=== PATIENT | female | born 1955 | race Caucasian/White ===

== ENCOUNTER 2019-01-19 19:38 | Emergency (ER) | payer SELFPAY ==
--- OUTSIDE RECORDS SUMMARY | 2019-01-19 19:41 | XMS REPORT ---
:1955 [facility] Address [facility] Brito [address] [place] [id number] Care Team Providers Name Role Phone Unavailable Unavailable Unavailable Problems This patient has no known problems. Allergies, Adverse Reactions, Alerts This patient has no known allergies or adverse reactions. Medications This patient has no known medications.
[2019-01-19] MEDS ORDERED: ONDANSETRON 4 MG/2 ML VIAL ONE (20:16)
[2019-01-19 20:46] LABS: Absolute Lymphocytes (CBC) 2.2 K/uL (0.7-4.9); Absolute Monocytes 1.7 K/uL (0.1-1.3); Absolute Neutrophil 10.5 K/uL (1.8-8.0); Basophils % 0.4 % (0-1.3); Eosinophils % 0.2 % (0-4.4); Hematocrit 39.6 % (36.0-45.0); Lymphocytes % 15.3 % (15.3-44.8); MPV 8.6 fL (7.6-11.3); Monocytes % 12.1 % (3.3-12.3); RBC Red Blood Cell Count 4.33 M/uL (3.86-4.86)
[2019-01-19 20:51] LABS: Albumin 3.5 g/dL (3.4-5.0); Bilirubin Direct 0.2 mg/dL (0-0.2); Bilirubin Total 0.5 mg/dL (0.2-1.0); Potassium 3.9 mmol/L (3.5-5.1); Protein, Total 7.3 g/dL (6.4-8.2)
[2019-01-19 20:55] LABS: Urine Culture Reflex Order NOT NEEDED
[2019-01-19 20:56] LABS: Urine Blood NEGATIVE (NEG); Urine Glucose NEGATIVE (NEG); Urine Protein TRACE (NEG); Urine Specific Gravity 1.015 (1.005-1.030)
[2019-01-19 20:56] LABS: Urine Bacteria <20 /HPF (<20); Urine RBC NONE SEEN /HPF (NONE SEEN)
--- NOTE | 2019-01-19 22:53 | ER ---
Nurse's Notes [facility] Name: Jayshree Grove Age: 63 yrs Sex: Female : 1955 Arrival Date: 01/19/2019 Time: 19:39 Bed 27 Private MD: Diagnosis: Urinary tract infection, site not specified;Dehydration;Viral syndrome Presentation: 01/19 19:43 Presenting complaint: Patient states: "I went to the doctor yesterday and he said that aj1 I have a bladder infection, and he gave me these (Nitrofurantoin and Naproxen) around 1200 I started feeling really bad. I started shaking and I was just freezing so I went home and took my medicine and then I felt really hot and I'm just not feeling good, my whole body hurts and everything". Transition of care: patient was not received from another setting of care. Onset of symptoms was January 19, 2019. Risk Assessment: Do you want to hurt yourself or someone else? Patient reports no desire to harm self or others. Initial Sepsis Screen: Does the patient meet any 2 criteria? HR > 90 bpm. No. Patient's initial sepsis screen is negative. Does the patient have a suspected source of infection? Yes: Dysuria/Frequency/Urgency/UTI. Care prior to arrival: None. 19:43 Method Of Arrival: Ambulatory [facility] 19:43 Acuity: BRIAN 3 aj1 Triage Assessment: 19:47 General: Appears in no apparent distress. uncomfortable, Behavior is cooperative, aj1 anxious. Pain: Complains of pain in generalized body aches. Neuro: Level of Consciousness is awake, alert, obeys commands, Oriented to person, place, time, situation. Cardiovascular: Patient's skin is warm and dry. Respiratory: Airway is patent Respiratory effort is even, unlabored, Respiratory pattern is regular, agonal. Musculoskeletal: Range of motion: intact in all extremities. Historical: - Allergies: 19:47 Codeine; aj1 - Home Meds: 19:47 lisinopril 10 mg Oral tab 1 tab once daily [Active]; Nitrofurantoin Macrocrystal Oral aj1 [Active]; Naproxen Oral [Active]; - PMHx: 19:47 Hypertension; aj1 - PSHx: 19:47 Cholecystectomy; Appendectomy; ; aj1 - Immunization history:: Flu vaccine is not up to date. - Social history:: Smoking status: Patient/guardian denies using tobacco. - Ebola Screening: : Patient denies travel to an Ebola-affected area in the 21 days before illness onset. - Family history:: not pertinent. - Hospitalizations: : No recent hospitalization is reported. Screenin:26 Abuse screen: Denies threats or abuse. Denies injuries from another. Nutritional mg2 screening: No deficits noted. Tuberculosis screening: No symptoms or risk factors identified. Fall Risk IV access (20 points). Assessment: 20:25 General: Appears comfortable, Behavior is calm, cooperative. Pain: Complains of pain in mg2 back Pain does not radiate. Pain currently is 4 out of 10 on a pain scale. Quality of pain is described as aching, Pain began gradually. Neuro: Level of Consciousness is awake, alert, obeys commands, Oriented to person, place, time, situation. Cardiovascular: Capillary refill < 3 seconds Patient's skin is warm and dry. Respiratory: Airway is patent Respiratory effort is even, unlabored, Respiratory pattern is regular, symmetrical. GI: Reports nausea, vomiting. : Urine is clear. EENT: Reports pain when swallowing. Derm: Skin is intact, is healthy with good turgor, Skin is pink, warm \\T\\ dry. normal. Musculoskeletal: Circulation, motion, and sensation intact. Capillary refill is > 3 seconds. 22:43 Reassessment: Patient appears in no apparent distress at this time. Patient and/or mg2 family updated on plan of care and expected duration. Pain level reassessed. Patient is alert, oriented x 3, equal unlabored respirations, skin warm/dry/pink. Vital Signs: 19:47 BP 143 / 73; Pulse 92; Resp 18; Temp 99.3(O); Pulse Ox 95% on R/A; Weight 76.66 kg (R); aj1 Height 5 ft. 6 in. (167.64 cm) (R); Pain 8/10; 22:43 BP 124 / 68; Pulse 72; Resp 18; Pulse Ox 100% on R/A; Pain 6/10; mg2 19:47 Body Mass Index 27.28 (76.66 kg, 167.64 cm) aj1 ED Course: 19:39 Patient arrived in ED. am2 19:46 Triage completed. aj1 19:47 Arm band placed on Patient placed in an exam room. aj1 19:51 Duane Amaya MD is Attending Physician. rn 20:03 Maximino Gomez, BASILIA is Primary Nurse. mg2 20:27 Patient has correct armband on for positive identification. mg2 20:27 No provider procedures requiring assistance completed. Inserted saline lock: 22 gauge mg2 in right forearm, using aseptic technique. Blood collected. 21:57 CT Abd/Pelvis - W/Contrast In Process Unspecified. EDMS 23:00 IV discontinued, intact, bleeding controlled, No redness/swelling at site. Pressure ca1 dressing applied. Administered Medications: 20:25 Drug: Zofran 4 mg Route: IVP; Site: right forearm; mg2 21:26 Follow up: Response: No adverse reaction; Marked relief of symptoms mg2 22:53 Drug: Tylenol 650 mg Route: PO; mg2 Outcome: 22:52 Discharge ordered by MD. rn 23:00 Discharged to home ambulatory. ca1 23:00 Condition: stable 23:00 Discharge instructions given to patient, Instructed on discharge instructions, follow up and referral plans. Demonstrated understanding of instructions, follow-up care. 23:04 Patient left the ED. ca1 Signatures: Dispatcher [employer] EDMS Teresa Mckay RN RN aj1 Duane Amaya MD MD rn Moreno, Amanda Maximino Theodore, BASILIA CUI mg2 Mirna Norman RN RN ca1
--- NOTE | 2019-01-19 22:53 | EDPHYS ---
Physician Documentation [facility] Name: Jayshree Grove Age: 63 yrs Sex: Female : 1955 Arrival Date: 01/19/2019 Time: 19:39 Bed 27 Private MD: ED Physician Duane Amaya HPI: 01/19 20:12 This 63 yrs old Female presents to ER via Ambulatory with complaints of rn Fever, Back Pain, Nausea/Vomiting. 20:12 The patient reports fever, that was measured at 100.2 degrees Fahrenheit. Onset: The rn symptoms/episode began/occurred today. Modifying factors: there are no obvious modifying factors. Severity of symptoms: At their worst the symptoms were mild in the emergency department the symptoms are unchanged. The patient has not experienced similar symptoms in the past. The patient has been recently seen by a physician:. Reports recently saw her pcp for chills and diagnosed with UTI, given macrobid, s/p 4 doses, reports today around noon felt worse, reports runny nose/sore throat/weakness/chills/muscle aches.. Historical: - Allergies: 19:47 Codeine; aj1 - Home Meds: 19:47 lisinopril 10 mg Oral tab 1 tab once daily [Active]; Nitrofurantoin Macrocrystal Oral aj1 [Active]; Naproxen Oral [Active]; - PMHx: 19:47 Hypertension; aj1 - PSHx: 19:47 Cholecystectomy; Appendectomy; ; aj1 - Immunization history:: Flu vaccine is not up to date. - Social history:: Smoking status: Patient/guardian denies using tobacco. - Ebola Screening: : Patient denies travel to an Ebola-affected area in the 21 days before illness onset. - Family history:: not pertinent. - Hospitalizations: : No recent hospitalization is reported. ROS: 20:12 Constitutional: + fever and chills Eyes: Negative for injury, pain, redness, and patternmaker wood, ENT: + congestion and sore throat Neck: Negative for injury, pain, and swelling, Cardiovascular: Negative for chest pain, palpitations, and edema, Respiratory: Negative for shortness of breath, cough, wheezing, and pleuritic chest pain, Abdomen/GI: + nausea and vomiting Back: Negative for injury and pain, : Negative for injury, bleeding, discharge, and swelling, MS/Extremity: Negative for injury and deformity, Skin: Negative for injury, rash, and discoloration, Neuro: + generalized weakness Exam: 20:12 Constitutional: This is a well developed, well nourished patient who is awake, alert, rn and in no acute distress. Head/Face: Normocephalic, atraumatic. Eyes: Pupils equal round and reactive to light, extra-ocular motions intact. Lids and lashes normal. Conjunctiva and sclera are non-icteric and not injected. Cornea within normal limits. Periorbital areas with no swelling, redness, or edema. ENT: MMM Neck: Trachea midline, no thyromegaly or masses palpated, and no cervical lymphadenopathy. Supple, full range of motion without nuchal rigidity, or vertebral point tenderness. No Meningismus. Cardiovascular: Regular rate and rhythm. No pulse deficits. Respiratory: Lungs have equal breath sounds bilaterally, clear to auscultation. No increased work of breathing, no retractions or nasal flaring. Abdomen/GI: soft, mild suprapubic tenderness, no rebound Back: No spinal tenderness. No costovertebral tenderness. Full range of motion. Skin: Warm, dry with normal turgor. Normal color with no rashes, no lesions, and no evidence of cellulitis. MS/ Extremity: Pulses equal, no cyanosis. Neurovascular intact. Full, normal range of motion. Equal circumference. Neuro: Awake and alert, GCS 15, oriented to person, place, time, and situation. Cranial nerves II-XII grossly intact. Motor strength 5/5 in all extremities. Sensory grossly intact. Vital Signs: 19:47 BP 143 / 73; Pulse 92; Resp 18; Temp 99.3(O); Pulse Ox 95% on R/A; Weight 76.66 kg (R); aj1 Height 5 ft. 6 in. (167.64 cm) (R); Pain 8/10; 22:43 BP 124 / 68; Pulse 72; Resp 18; Pulse Ox 100% on R/A; Pain 6/10; mg2 19:47 Body Mass Index 27.28 (76.66 kg, 167.64 cm) aj1 MDM: 19:51 Patient medically screened. rn 22:49 Differential diagnosis: viral Infection, bacterial infection, URI, UTI, rn gastroenteritis, meningitis. Data reviewed: vital signs, nurses notes, lab test result(s), radiologic studies, CT scan, and as a result, I will discharge patient. Counseling: I had a detailed discussion with the patient and/or guardian regarding: the historical points, exam findings, and any diagnostic results supporting the discharge/admit diagnosis, lab results, radiology results, the need for outpatient follow up, to return to the emergency department if symptoms worsen or persist or if there are any questions or concerns that arise at home. 22:50 Special discussion: I discussed with the patient/guardian in detail that at this point rn there is no indication for admission to the hospital. It is understood, however, that if the symptoms persist or worsen the patient needs to return immediately for re-evaluation. ED course: Pt with no acute findings on CT, questionable UTI but partially treated, neg flu, possible flu like illness. Reports headache, given tylenol, no meningeal signs. . 22:50 ED course: Has appt with pcp tomorrow at 10 AM. Return precautions given and rn understood.. 01/19 19:59 Order name: Basic Metabolic Panel; Complete Time: 21:30 01/19 19:59 Order name: CBC with Diff; Complete Time: 21: 01/19 19:59 Order name: Hepatic Function; Complete Time: 21: 01/19 19:59 Order name: Lipase; Complete Time: 21: 01/19 19:59 Order name: Flu; Complete Time: 21:30 01/19 19:59 Order name: Urine Culture 01/19 19:59 Order name: IV Saline Lock; Complete Time: 20:25 01/19 19:59 Order name: Urine Microscopic Only; Complete Time: 21:30 01/19 19:59 Order name: Strep; Complete Time: 21:30 01/19 20:28 Order name: Urine Dipstick--Ancillary (enter results); Complete Time: 21:30 mw2 01/19 20:50 Order name: Throat Culture EDIL 01/19 21:31 Order name: CT Abd/Pelvis - W/Contrast 01/19 19:59 Order name: Labs collected and sent; Complete Time: 20:25 rn 01/19 19:59 Order name: Urine Dipstick-Ancillary (obtain specimen); Complete Time: 20:25 rn Administered Medications: 20:25 Drug: Zofran 4 mg Route: IVP; Site: right forearm; mg2 21:26 Follow up: Response: No adverse reaction; Marked relief of symptoms mg2 22:53 Drug: Tylenol 650 mg Route: PO; mg2 Disposition: 01/19/19 22:52 Discharged to Home. Impression: Urinary tract infection, site not specified, Dehydration, Viral syndrome. - Condition is Stable. - Discharge Instructions: Dehydration, Adult, Urinary Tract Infection, Adult. - Medication Reconciliation Form, Thank You Letter, Antibiotic Education, Prescription Opioid Use form. - Follow up: Private Physician; When: Tomorrow; Reason: Recheck today's complaints, Re-evaluation by your physician. - Problem is new. - Symptoms have improved. Signatures: Dispatcher [employer] EDMS Teresa Mckay RN RN aj1 Duane Amaya MD MD rn Gardose, Michele, RN RN mg2 Mirna Norman RN RN ca1 Corrections: (The following items were deleted from the chart) 22:50 20:12 Constitutional: This is a well developed, well nourished patient who is awake, rn alert, and in no acute distress. Head/Face: Normocephalic, atraumatic. Eyes: Pupils equal round and reactive to light, extra-ocular motions intact. Lids and lashes normal. Conjunctiva and sclera are non-icteric and not injected. Cornea within normal limits. Periorbital areas with no swelling, redness, or edema. ENT: MMM Cardiovascular: Regular rate and rhythm. No pulse deficits. Respiratory: Lungs have equal breath sounds bilaterally, clear to auscultation. No increased work of breathing, no retractions or nasal flaring. Abdomen/GI: soft, mild suprapubic tenderness, no rebound Back: No spinal tenderness. No costovertebral tenderness. Full range of motion. Skin: Warm, dry with normal turgor. Normal color with no rashes, no lesions, and no evidence of cellulitis. MS/ Extremity: Pulses equal, no cyanosis. Neurovascular intact. Full, normal range of motion. Equal circumference. Neuro: Awake and alert, GCS 15, oriented to person, place, time, and situation. Cranial nerves II-XII grossly intact. Motor strength 5/5 in all extremities. Sensory grossly intact. rn 23:04 22:52 01/19/2019 22:52 Discharged to Home. Impression: Urinary tract infection, site ca1 not specified; Dehydration; Viral syndrome. Condition is Stable. Forms are Medication Reconciliation Form, Thank You Letter, Antibiotic Education, Prescription Opioid Use. Follow up: Private Physician; When: Tomorrow; Reason: Recheck today's complaints, Re-evaluation by your physician. Problem is new. Symptoms have improved. rn
[2019-01-19] MEDS ORDERED: ACETAMINOPHEN 325 MG TABLET ONE (23:04)
--- NOTE | 2019-01-20 11:32 | RAD REPORT ---
EXAM DESCRIPTION: CT - Abdomen Pelvis W Contrast - 01/19/2019 10:20 pm CLINICAL HISTORY: Abdominal pain. Fever. COMPARISON: None. TECHNIQUE: CT scan of the abdomen and pelvis was performed with IV contrast. This exam was performed according to our departmental dose-optimization program, which includes automated exposure control, adjustment of the mA and/or kV according to patient size and/or use of iterative reconstruction techn ique. FINDINGS: The lung bases are clear. No pleural or pericardial effusions. There is no hiatal hernia. There has been a prior cholecystectomy. The liver, spleen, pancreas, adrenal glands, and kidneys are normal. The pelvic organs are also normal. The appendix is not seen. No small bowel obstruction. There is no evidence of acute diverticulitis. N o intraperitoneal free fluid or free air is seen. There are mild degenerative changes of the spine. No body wall hernia is seen. The aorta and IVC are normal caliber. IMPRESSION: No acute abdominal or pelvic pathology. Electronically signed by: Massimo Mayorga MD 01/19/2019 10:11 PM CDT Due to temporary technical issues with the PACS/Fluency reporting system, reports are being signed by the in house radiologist as a courtesy to ensure prompt reporting. The interpreting radiologist is f ully responsible for the content of the report.
== END 2019-01-19 23:04 | disposition home or self-care (01) ==
LOC: ER 19:38
DX: E86.0 Dehydration (principal); N39.0 Urinary tract infection, site not specified; B34.9 Viral infection, unspecified; I10 Essential (primary) hypertension; Z88.5 Allergy status to narcotic agent; Z90.49 Acquired absence of other specified parts of digestive tract
CPT/HCPCS: 36415; 74177; 80048; 80076; 81003; 81015; 83690; 85025; 87070; 87081; 87086; 87088; 87804; J2405; Q9967

== ENCOUNTER 2023-10-19 07:39 | Observation (INO) | payer OTHER, SELFPAY ==
[2023-10-15 14:51] LABS: Urine Bilirubin NEGATIVE (Negative); Urine Blood Negative (Negative); Urine Clarity Clear (Clear); Urine Color Light-Yellow (Yellow); Urine Glucose NEGATIVE (Negative); Urine Protein NEGATIVE (Negative); Urine Urobilinogen Normal (Normal)
[2023-10-15 14:54] LABS: Lymphocytes % 38.9 % (15.3-44.8); MCV 93.1 fL (80-100); MPV 9.8 fL (7.6-11.3); Platelets 255 thou/uL (152-406); RBC Red Blood Cell Count 4.62 M/uL (3.86-4.86)
[2023-10-15 15:00] LABS: Potassium 3.8 mEq/L (3.5-5.1)
[2023-10-19] MEDS ORDERED: SCOPOLAMINE HYDROBROMIDE PATCH TD ONE (08:03)
[2023-10-19] MEDS ORDERED: Ringers Lactate 1,000 ML IV ONE ×2 (08:03→12:45)
[2023-10-19] MEDS ORDERED: LIDOCAINE 1% MPF 5 ML VIAL ONE (08:37)
[2023-10-19] MEDS ORDERED: ROCURONIUM 50 MG/5 ML VIAL IV ONE (08:37)
[2023-10-19] MEDS ORDERED: dexAMETHasone 10 MG/ML VIAL ONE (08:37)
[2023-10-19] MEDS ORDERED: MIDAZOLAM HCL 2 MG/2 ML INJ ONE (08:37)
[2023-10-19] MEDS ORDERED: propofoL 200 MG/20 ML VIAL IV ONE (08:37)
[2023-10-19] MEDS ORDERED: ONDANSETRON 4 MG/2 ML VIAL ONE (08:37)
[2023-10-19] MEDS ORDERED: FENTANYL CITR 100 MCG/2 ML ONE (08:37)
[2023-10-19] MEDS ORDERED: VASOPRESSIN 20 UNIT/ML VIAL ONE (10:00)
[2023-10-19] MEDS ORDERED: LIDOCAINE HCL/EPINEPHRINE 20 ML MDV ONE (10:03)
[2023-10-19] MEDS ORDERED: NA CHLORIDE 0.9% 100 ML ONE (10:05)
[2023-10-19] MEDS ORDERED: CEFAZOLIN SODIUM 1 GM/VIAL ONE (10:07)
[2023-10-19] MEDS ORDERED: KETAMINE HCL IN 0.9 % NACL 50 MG/5 ML SYRINGE IV ONE (10:07)
[2023-10-19] MEDS: CEFAZOLIN SODIUM 2 GM/VIAL ONE ×2 (10:22→10:40)
[2023-10-19] MEDS ORDERED: GLYCOPYRROLATE 0.2 MG/ML SYR ONE (11:13)
[2023-10-19] MEDS ORDERED: MORPHINE 10 MG/ML VIAL ONE (13:30)
[2023-10-19] MEDS ORDERED: HOME MED 1 EA UNK (Albuterol Sulfate [Proair Respiclick] 90 MCG Aer.Pow.Ba) IH PRN (13:49)
[2023-10-19] MEDS ORDERED: ONDANSETRON 4 MG/2 ML VIAL IV PRN (13:50)
[2023-10-19] MEDS ORDERED: PROMETHAZINE INJ 25 MG/ML AMP IV PRN (13:50)
--- NOTE | 2023-10-19 14:00 | P.BOP ---
Preoperative diagnosis: stage 3 anterior wall, incomplete ut vag prolapse, rectocele,Georgina Postoperative diagnosis: same, post enterocele Primary procedure: Biolog graft aug.Ant repair,sara sslf cervico-colpopexy,post repairSSD Secondary procedure: posterior enterocele repair and perineorrhaphy TO-MUS (solyx) Other procedure(s): cysto Retail Analyst: Caitlin Blandon Estimated blood loss: 50 Specimen: none Findings: 0/+2/0/6/MOD/8/0/0/-3,Post enterocel, distal L lat defect post wall defect Anesthesia: General Complications: None Drain(s): Urinary catheter Implants: solyx, Coloplast graft 8x6 Transferred to: Recovery Room Condition: Good
[2023-10-19] MEDS: MORPHINE 4 MG/ML SYR ONE ×4 (14:40→14:58)
[2023-10-19] MEDS ORDERED: MORPHINE 4 MG/ML SYR ONE (14:58)
[2023-10-19 15:08] VITALS: O2SAT 97
--- OUTSIDE RECORDS SUMMARY | 2023-10-19 15:17 | XMS REPORT | Continuity of Care Document ---
Author Name Unknown Address [address] [facility] [address] [place] [address] [facility] thconnect Address [address] [facility] [address] [place] [address] Care Team Providers Care Vp Sales Name Role Phone CHRISTINE SANTOYO Primary Care Physician Un available YOLIE DELGADO Attending Clinician SHARIFA Kennedy Attending Clinician Unavailable GC_GCBZW_Yimi_[facility] Attending Clinician Sharifa Orlando MD Attending Clinician Pob, [facility] Main Attending Clinician Yolie Herbert MD Attending Clinician [phone] YOLIE LIM Attending Clinician UnavailDIO Mendoza Attending Clinician Unavailable Dio Quispe PA-C Attending Clinician Doctor Unassigned, [place] Attending Clinician U Christine Ceballos MD Attending Clinician [phone] AMANDEEP HANNON Attending Clinician Unavailable Amandeep Devries Attending Clinician [phone] LUZ RICARDO Attending Clinician UnavailLuz Jasmine MD Attending Clinician [phone], [facility] Attending Clinician Unavailable CHRISTINE SANTOYO Attending Clinician Unava GRISELDA Sandoval Attending Clinician Unavailab GRISELDA Kirkpatrick Attending Clinician Unavailab tod Nurse, [facility] Fam Attending Clinician Unavailable JAQUELINE NG Attending Clinician Unavailab Jaqueline Michaels DO Attending Clinician [phone] COLETTE DYSON Attending Clinician Unavailjonel Olivera PT, Kareen Sosa Attending Clinician Unava Colette Rosa MD Attending Clinician [phone] Talon PT, Deneen Lawton Attending Clinician Unavail able AL VERGARA Attending Clinician Unavail able Nurse, [facility] Pob Immunization Attending Clinician Unavailable Al Vergara DO Attending Clinician [phone] Mary MCMAHAN, Yolie Hensley Attending Clinician + [phone] Only, [facility] Test Attending Clinician Unavailable Sarahi Kim MA Attending Clinician Unavailjonel Tavares GO GO DANCER, Oliva Guajardo Attending Clinician Unavail able Chelsea PT, Margot Mike Attending Clinician Unavailab tod Olsen AIRCRAFT LIFE SUPPORT FITTER, Flower Attending Clinician [phone] Mariana Berger PT Attending Clinician Unavailab FLOWER Olivares Attending Clinician UnavailCHARLOTTE Mckinnon Attending Clinician Unavailable Leighann DPM, Mel Anglin Attending Clinician MEL PALMA Attending Clinician Unav ailANU Tucker Attending Clinician Unavailable George TRUCK SHOP MECHANIC, Anu Mike Attending Clinician [phone] Taran Pittman MD Attending Clinician [phone] Kevin York MD Attending Clinician [phone] Nash Morales MD Attending Clinician [phone] YOLIE DELGADO Admitting Clinician Malena bravo GC_GCBZW_[facility] Admitting Clinician Unavaila SHARIFA Salcedo Admitting Clinician Unavailable LUZ RICARDO Admitting Clinician UnavailJAQUELINE Martínez Admitting Clinician Unavailab CHRISTINE Marie Admitting Clinician UnaYolie Aguayo MD Admitting Clinician [phone] ANU ROCHE Admitting Clinician Unavailable Payers Payer Name Policy Type Policy Number Effective Date Expirati on Date Source [employer]LL[employer]/UHC DUAL COMP HMO D SNP [id number] 2021 00:00:00 [place] [id number] 2021 00:00:00 [employer] [place] [id number] 2022 00:00:00 [place] - [place] - [place] - [place]MEDIC[place] REPLACEMENT/ADVANT AGE - HMO) [id number] Problems Condition Name Condition Details Condition Category Status Onset Date Resolution Date Last Treatment Date Treating Clinician Comments Source Decreased ROM of lumbar spine Decreased ROM of lumbar spine Disease Active 2020-09 00:00: 00 [facility] Chronic left SI joint pain Chronic left SI joint pain Disease Active 2020-09 00:00: 00 [facility] Low back pain Low back pain Disease Active 2020-09 00:00: 00 [facility] Type 2 diabetes mellitus without complicati on, without long-term current use of insulin Type 2 diabetes mellitus without complicati on, without long-term current use of insulin Disease Active 03-11 00:00: 00 [facility] Cervical high risk HPV (human papillomav irus) test positive Cervical high risk HPV (human papillomav irus) test positive Disease Active 12-18 00:00: 00 Overview: Formattin g of this note might be different from the original. Normal pap, +hpv will need cotesting in 1 year [facility] Menopausal state Menopausal state Disease Active 314 00:00: 00 [facility] H. pylori infection H. pylori infection Disease Active 8 00:00: 00 [facility] Essential hypertensi on Essential hypertensi on Disease Active 01-06 00:00: 00 [facility] Hyperlipid emia, unspecifie d Hyperlipid emia, unspecifie d Disease Active 01-06 00:00: 00 [facility] GERD (gastroeso phageal reflux disease) GERD (gastroeso phageal reflux disease) Disease Active 4-11 00:00: 00 [facility] Allergies, Adverse Reactions, Alerts Allergy Name Allergy Type Status Severity Reaction(s) Onset Date Inactive Date Treating Clinician Comments Source Judyithr omycin Propensi ty to adverse reaction s Active Nausea and/or Vomiting 05-22 00:00: 00 [facility] CLARITHR OMYCIN DRUG INGREDI Active N/V 05-22 00:00: 00 [facility] Codeine Propensi ty to adverse reaction s Active Hives 2014-09 00:00: 00 [facility] CODEINE DRUG INGREDI Active Hives 2014-09 00:00: 00 [facility] Social History Social Habit Start Date Stop Date Quantity Comments Source Sexual orientation [facility] History of Social function 2023-06-30 00:00:00 2023-06-30 00:00:00 [facility] Alcohol intake 2023-04-02 00:00:00 2023-04-02 00:00:00 Current non-drinker of alcohol (finding) [facility] Exposure to SARS-CoV-2 (event) 2022-12-12 00:00:00 2022-12-22 14:36:00 Not sure [facility] Cigarettes smoked current (pack per day) - Reported 2022-04-10 00:00:00 2022-04-10 00:00:00 [facility] Cigarette pack-years 2022-04-10 00:00:00 2022-04-10 00:00:00 [facility] Tobacco use and exposure 2022-04-10 00:00:00 2022-04-10 00:00:00 Smokeless tobacco non-user [facility] History of tobacco use 2018-05-23 00:00:00 Cigarette Smoker [facility] Sex Assigned At 1955 00:00:00 1955 00:00:00 [facility] Smoking Status Start Date Stop Date Source Ex-smoker 2022-04-10 00:00:00 2022-04-10 00:00:00 [facility] Medications Ordered Medication Name Filled Medication Name Start Date Stop Date Current Medication? Ordering Clinician Indication Dosage Frequency Signature (SIG) Comments Components Source GABAPENTIN 800 mg tablet 17 00:00: 00 Yes [id number] Take 1 tablet by mouth twice daily [facility] GABAPENTIN 800 mg tablet 2022-0 17 00:00: 00 Yes [id number] Take 1 tablet by mouth twice daily [facility] GABAPENTIN 800 mg tablet 17 00:00: 00 Yes [id number] Take 1 tablet by mouth twice daily [facility] GABAPENTIN 800 mg tablet 0 01-12 00:00: 00 Yes [id number] Take 1 tablet by mouth twice daily [facility] GABAPENTIN 800 mg tablet 0 01-12 00:00: 00 Yes [id number] Take 1 tablet by mouth twice daily [facility] GABAPENTIN 800 mg tablet 01-12 00:00: 00 Yes [id number] Take 1 tablet by mouth twice daily [facility] GABAPENTIN 800 mg tablet 17 00:00: 00 Yes [id number] Take 1 tablet by mouth twice daily [facility] GABAPENTIN 800 mg tablet 01-12 00:00: 00 Yes [id number] Take 1 tablet by mouth twice daily [facility] GABAPENTIN 800 mg tablet 0 17 00:00: 00 Yes [id number] Take 1 tablet by mouth twice daily [facility] GABAPENTIN 800 mg tablet 01-12 00:00: 00 Yes [id number] Take 1 tablet by mouth twice daily [facility] levalbutero l (XOPENEX) nebulizer solution 1.25 mg 12-19 19:00: 00 Yes 1.25mg 1.25 mg, Inhalation , TID, First dose on Thu12/19/22 at 1400, Until Discontinu ed, Routine [facility] NaCl 0.9% (NS) bolus infusion 500 mL 12-19 17:15: 00 12-19 19:02 :00 No 500mL at 999 mL/hr, 500 mL, IV Infusion, ONCE, 1 dose, On Thu12/19/22 at 1215, [facility] ipratropium (ATROVENT) 0.02 % nebulizer solution 0.5 mg 12-19 17:15: 00 12-19 16:47 :00 No .5mg 0.5 mg, Inhalation , ONCE, 1 dose, On Thu12/19/22 at 1215, [facility] proMETHazin e (PHENERGAN) 12.5 mg in NaCl 0.9% (NS) 50 mL IV piggyback 12-19 16:30: 00 12-19 16:43 :00 No 12.5mg 12.5 mg, IV Piggyback, ONCE, 1 dose, On Thu12/19/22 at 1130, [facility] meclizine (TRAVEL-EAS E (MECLIZINE) ) tablet 25 mg 12-19 16:30: 00 12-19 16:28 :00 No 25mg 25 mg, Oral, ONCE, 1 dose, On Thu12/19/22 at 1130, [facility] meclizine 25 mg tablet 12-19 00:00: 00 Yes [id number] 25mg Take 1 tablet by mouth every 6 (six) hours as needed for Dizziness. [facility] proMETHazin e 25 mg tablet 12-19 00:00: 00 Yes [id number] 25mg Take 1 tablet by mouth every 6 (six) hours as needed (Dizziness and/or Nausea). [facility] benzonatate 100 mg capsule 12-19 00:00: 00 Yes [id number] 100mg Take 1 capsule by mouth 3 (three) times daily as needed for Cough. [facility] albuterol 90 mcg/actuati on inhaler 12-19 00:00: 00 Yes [id number] 2{puff} Inhale 2 Puffs every 4 (four) hours as needed for Wheezing or Shortness of Breath. [facility] meclizine 25 mg tablet 12-19 00:00: 00 Yes [id number] 25mg Take 1 tablet by mouth every 6 (six) hours as needed for Dizziness. [facility] proMETHazin e 25 mg tablet 12-19 00:00: 00 Yes [id number] 25mg Take 1 tablet by mouth every 6 (six) hours as needed (Dizziness and/or Nausea). [facility] benzonatate 100 mg capsule 12-19 00:00: 00 Yes [id number] 100mg Take 1 capsule by mouth 3 (three) times daily as needed for Cough. [facility] albuterol 90 mcg/actuati on inhaler 12-19 00:00: 00 Yes [id number] 2{puff} Inhale 2 Puffs every 4 (four) hours as needed for Wheezing or Shortness of Breath. [facility] meclizine 25 mg tablet 12-19 00:00: 00 Yes [id number] 25mg Take 1 tablet by mouth every 6 (six) hours as needed for Dizziness. [facility] proMETHazin e 25 mg tablet 12-19 00:00: 00 Yes [id number] 25mg Take 1 tablet by mouth every 6 (six) hours as needed (Dizziness and/or Nausea). [facility] benzonatate 100 mg capsule 12-19 00:00: 00 Yes [id number] 100mg Take 1 capsule by mouth 3 (three) times daily as needed for Cough. [facility] albuterol 90 mcg/actuati on inhaler 12-19 00:00: 00 Yes [id number] 2{puff} Inhale 2 Puffs every 4 (four) hours as needed for Wheezing or Shortness of Breath. [facility] meclizine 25 mg tablet 12-19 00:00: 00 Yes [id number] 25mg Take 1 tablet by mouth every 6 (six) hours as needed for Dizziness. [facility] proMETHazin e 25 mg tablet 0 24 00:00: 00 Yes [id number] 25mg Take 1 tablet by mouth every 6 (six) hours as needed (Dizziness and/or Nausea). [facility] benzonatate 100 mg capsule 2022-0 324 00:00: 00 Yes [id number] 100mg Take 1 capsule by mouth 3 (three) times daily as needed for Cough. [facility] albuterol 90 mcg/actuati on inhaler 0 324 00:00: 00 Yes [id number] 2{puff} Inhale 2 Puffs every 4 (four) hours as needed for Wheezing or Shortness of Breath. [facility] meclizine 25 mg tablet 2022-0 24 00:00: 00 Yes [id number] 25mg Take 1 tablet by mouth every 6 (six) hours as needed for Dizziness. [facility] proMETHazin e 25 mg tablet 0 12-19 00:00: 00 Yes [id number] 25mg Take 1 tablet by mouth every 6 (six) hours as needed (Dizziness and/or Nausea). [facility] benzonatate 100 mg capsule 0 24 00:00: 00 Yes [id number] 100mg Take 1 capsule by mouth 3 (three) times daily as needed for Cough. [facility] albuterol 90 mcg/actuati on inhaler 0 12-19 00:00: 00 Yes [id number] 2{puff} Inhale 2 Puffs every 4 (four) hours as needed for Wheezing or Shortness of Breath. [facility] meclizine 25 mg tablet 2022-0 324 00:00: 00 Yes [id number] 25mg Take 1 tablet by mouth every 6 (six) hours as needed for Dizziness. [facility] proMETHazin e 25 mg tablet 2022-0 24 00:00: 00 Yes [id number] 25mg Take 1 tablet by mouth every 6 (six) hours as needed (Dizziness and/or Nausea). [facility] benzonatate 100 mg capsule 2022-0 24 00:00: 00 Yes [id number] 100mg Take 1 capsule by mouth 3 (three) times daily as needed for Cough. [facility] albuterol 90 mcg/actuati on inhaler 12-19 00:00: 00 Yes [id number] 2{puff} Inhale 2 Puffs every 4 (four) hours as needed for Wheezing or Shortness of Breath. [facility] meclizine 25 mg tablet 12-19 00:00: 00 Yes [id number] 25mg Take 1 tablet by mouth every 6 (six) hours as needed for Dizziness. [facility] albuterol 90 mcg/actuati on inhaler 12-19 00:00: 00 Yes [id number] 2{puff} Inhale 2 Puffs every 4 (four) hours as needed for Wheezing or Shortness of Breath. [facility] meclizine 25 mg tablet 12-19 00:00: 00 Yes [id number] 25mg Take 1 tablet by mouth every 6 (six) hours as needed for Dizziness. [facility] albuterol 90 mcg/actuati on inhaler 12-19 00:00: 00 Yes [id number] 2{puff} Inhale 2 Puffs every 4 (four) hours as needed for Wheezing or Shortness of Breath. [facility] meclizine 25 mg tablet 12-19 00:00: 00 Yes [id number] 25mg Take 1 tablet by mouth every 6 (six) hours as needed for Dizziness. [facility] albuterol 90 mcg/actuati on inhaler 12-19 00:00: 00 Yes [id number] 2{puff} Inhale 2 Puffs every 4 (four) hours as needed for Wheezing or Shortness of Breath. [facility] meclizine 25 mg tablet 12-19 00:00: 00 Yes [id number] 25mg Take 1 tablet by mouth every 6 (six) hours as needed for Dizziness. [facility] albuterol 90 mcg/actuati on inhaler 12-19 00:00: 00 Yes [id number] 2{puff} Inhale 2 Puffs every 4 (four) hours as needed for Wheezing or Shortness of Breath. [facility] meclizine 25 mg tablet 12-19 00:00: 00 Yes [id number] 25mg Take 1 tablet by mouth every 6 (six) hours as needed for Dizziness. [facility] albuterol 90 mcg/actuati on inhaler 12-19 00:00: 00 Yes [id number] 2{puff} Inhale 2 Puffs every 4 (four) hours as needed for Wheezing or Shortness of Breath. [facility] meclizine 25 mg tablet 12-19 00:00: 00 Yes [id number] 25mg Take 1 tablet by mouth every 6 (six) hours as needed for Dizziness. [facility] albuterol 90 mcg/actuati on inhaler 12-19 00:00: 00 Yes [id number] 2{puff} Inhale 2 Puffs every 4 (four) hours as needed for Wheezing or Shortness of Breath. [facility] proMETHazin e 25 mg tablet 12-19 00:00: 00 04-02 00:00 :00 No [id number] 25mg Take 1 tablet by mouth every 6 (six) hours as needed (Dizziness and/or Nausea). [facility] benzonatate 100 mg capsule 12-19 00:00: 00 04-02 00:00 :00 No [id number] 100mg Take 1 capsule by mouth 3 (three) times daily as needed for Cough. [facility] proMETHazin e 25 mg tablet 12-19 00:00: 00 04-02 00:00 :00 No [id number] 25mg Take 1 tablet by mouth every 6 (six) hours as needed (Dizziness and/or Nausea). [facility] benzonatate 100 mg capsule 24 00:00: 00 04-02 00:00 :00 No [id number] 100mg Take 1 capsule by mouth 3 (three) times daily as needed for Cough. [facility] predniSONE 20 mg tablet 24 00:00: 00 12-27 04:59 :00 No [id number] 40mg Take 2 tablets by mouth in the morning for 7 days. [facility] predniSONE 20 mg tablet 12-19 00:00: 00 12-27 04:59 :00 No [id number] 40mg Take 2 tablets by mouth in the morning for [address] [facility] ALBUTEROL 90 mcg/actuati on inhaler 3 00:00: 00 Yes [id number] INHALE 2 PUFFS BY MOUTH EVERY 6 HOURS NEEDED FOR WHEEZING FOR SHORTNESS OF BREATH [facility] ALBUTEROL 90 mcg/actuati on inhaler 3 00:00: 00 Yes [id number] INHALE 2 PUFFS BY MOUTH EVERY 6 HOURS NEEDED FOR WHEEZING FOR SHORTNESS OF BREATH [facility] ALBUTEROL 90 mcg/actuati on inhaler 3 00:00: 00 Yes [id number] INHALE 2 PUFFS BY MOUTH EVERY 6 HOURS NEEDED FOR WHEEZING FOR SHORTNESS OF BREATH [facility] ALBUTEROL 90 mcg/actuati on inhaler 3 00:00: 00 Yes [id number] INHALE 2 PUFFS BY MOUTH EVERY 6 HOURS NEEDED FOR WHEEZING FOR SHORTNESS OF BREATH [facility] ALBUTEROL 90 mcg/actuati on inhaler 3 00:00: 00 Yes [id number] INHALE 2 PUFFS BY MOUTH EVERY 6 HOURS NEEDED FOR WHEEZING FOR SHORTNESS OF BREATH [facility] ALBUTEROL 90 mcg/actuati on inhaler 3 00:00: 00 Yes [id number] INHALE 2 PUFFS BY MOUTH EVERY 6 HOURS NEEDED FOR WHEEZING FOR SHORTNESS OF BREATH [facility] ALBUTEROL 90 mcg/actuati on inhaler 3 00:00: 00 Yes [id number] INHALE 2 PUFFS BY MOUTH EVERY 6 HOURS NEEDED FOR WHEEZING FOR SHORTNESS OF BREATH [facility] ALBUTEROL 90 mcg/actuati on inhaler 3- 00:00: 00 Yes [id number] INHALE 2 PUFFS BY MOUTH EVERY 6 HOURS NEEDED FOR WHEEZING FOR SHORTNESS OF BREATH [facility] ALBUTEROL 90 mcg/actuati on inhaler 3- 00:00: 00 Yes [id number] INHALE 2 PUFFS BY MOUTH EVERY 6 HOURS NEEDED FOR WHEEZING FOR SHORTNESS OF BREATH [facility] ALBUTEROL 90 mcg/actuati on inhaler 0 3-21 00:00: 00 Yes [id number] INHALE 2 PUFFS BY MOUTH EVERY 6 HOURS NEEDED FOR WHEEZING FOR SHORTNESS OF BREATH [facility] ALBUTEROL 90 mcg/actuati on inhaler 3-21 00:00: 00 Yes [id number] INHALE 2 PUFFS BY MOUTH EVERY 6 HOURS NEEDED FOR WHEEZING FOR SHORTNESS OF BREATH [facility] ALBUTEROL 90 mcg/actuati on inhaler 0 3- 00:00: 00 Yes [id number] INHALE 2 PUFFS BY MOUTH EVERY 6 HOURS NEEDED FOR WHEEZING FOR SHORTNESS OF BREATH [facility] ALBUTEROL 90 mcg/actuati on inhaler 3-21 00:00: 00 Yes [id number] INHALE 2 PUFFS BY MOUTH EVERY 6 HOURS NEEDED FOR WHEEZING FOR SHORTNESS OF BREATH [facility] tamsulosin (FLOMAX) 0.4 mg 24 hr capsule 2021-09 0-04 00:00: 00 Yes [id number] .4mg Take 1 capsule by mouth in the morning. [facility] tamsulosin (FLOMAX) 0.4 mg 24 hr capsule 2021-09 0-04 00:00: 00 Yes [id number] .4mg Take 1 capsule by mouth in the morning. [facility] tamsulosin (FLOMAX) 0.4 mg 24 hr capsule 2021-09 0-04 00:00: 00 Yes [id number] .4mg Take 1 capsule by mouth in the morning. [facility] tamsulosin (FLOMAX) 0.4 mg 24 hr capsule 2021- 0-04 00:00: 00 Yes [id number] .4mg Take 1 capsule by mouth in the morning. [facility] tamsulosin (FLOMAX) 0.4 mg 24 hr capsule 2021- 0-04 00:00: 00 Yes [id number] .4mg Take 1 capsule by mouth in the morning. [facility] tamsulosin (FLOMAX) 0.4 mg 24 hr capsule 2- 0-04 00:00: 00 Yes [id number] .4mg Take 1 capsule by mouth in the morning. [facility] tamsulosin (FLOMAX) 0.4 mg 24 hr capsule 2021- 0-04 00:00: 00 Yes [id number] .4mg Take 1 capsule by mouth in the morning. [facility] tamsulosin (FLOMAX) 0.4 mg 24 hr capsule 2021- 0-04 00:00: 00 Yes [id number] .4mg Take 1 capsule by mouth in the morning. [facility] tamsulosin (FLOMAX) 0.4 mg 24 hr capsule 2021- 0-04 00:00: 00 Yes [id number] .4mg Take 1 capsule by mouth in the morning. [facility] tamsulosin (FLOMAX) 0.4 mg 24 hr capsule 2021- 0-04 00:00: 00 Yes [id number] .4mg Take 1 capsule by mouth in the morning. [facility] tamsulosin (FLOMAX) 0.4 mg 24 hr capsule 2021- 0-04 00:00: 00 Yes [id number] .4mg Take 1 capsule by mouth in the morning. [facility] tamsulosin (FLOMAX) 0.4 mg 24 hr capsule 2021- 0-04 00:00: 00 Yes [id number] .4mg Take 1 capsule by mouth in the morning. [facility] tamsulosin (FLOMAX) 0.4 mg 24 hr capsule 2021- 0-04 00:00: 00 Yes [id number] .4mg Take 1 capsule by mouth in the morning. [facility] tamsulosin (FLOMAX) 0.4 mg 24 hr capsule 2-1 0-04 00:00: 00 Yes [id number] .4mg Take 1 capsule by mouth in the morning. [facility] tamsulosin (FLOMAX) 0.4 mg 24 hr capsule 2- 0-04 00:00: 00 Yes [id number] .4mg Take 1 capsule by mouth in the morning. [facility] tamsulosin (FLOMAX) 0.4 mg 24 hr capsule 2021- 0-04 00:00: 00 Yes [id number] .4mg Take 1 capsule by mouth in the morning. [facility] tamsulosin (FLOMAX) 0.4 mg 24 hr capsule 2021-09 0-04 00:00: 00 Yes [id number] .4mg Take 1 capsule by mouth in the morning. [facility] tamsulosin (FLOMAX) 0.4 mg 24 hr capsule 2021-09 0-04 00:00: 00 Yes [id number] .4mg Take 1 capsule by mouth in the morning. [facility] tamsulosin (FLOMAX) 0.4 mg 24 hr capsule 2021-09 0-04 00:00: 00 Yes [id number] .4mg Take 1 capsule by mouth in the morning. [facility] cephALEXin (KEFLEX) 500 mg capsule 2021-09 0-04 00:00: 00 07-09 04:59 :00 No [id number] 500mg Take 1 capsule by mouth in the morning and 1 capsule at noon and 1 capsule in the evening. Do all this for 7 days. [facility] cephALEXin (KEFLEX) 500 mg capsule 2021-09 0-04 00:00: 00 07-09 04:59 :00 No [id number] 500mg Take 1 capsule by mouth in the morning and 1 capsule at noon and 1 capsule in the evening. Do all this for 7 days. [facility] amoxicillin 875 mg tablet 04-19 00:00: 00 04-27 04:59 :00 No [id number] 875mg Take 1 tablet by mouth in the morning and 1 tablet in the evening. Do all this for 7 days. [facility] lisinopriL 10 mg tablet 0 5-10 00:00: 00 Yes [id number] 10mg Take 1 tablet by mouth daily. [facility] montelukast (SINGULAIR) 10 mg tablet 2021-0 5-10 00:00: 00 Yes [id number] 10mg Take 1 tablet by mouth at bedtime. [facility] lisinopriL 10 mg tablet 2022-0 5-10 00:00: 00 Yes [id number] 10mg Take 1 tablet by mouth daily. [facility] montelukast (SINGULAIR) 10 mg tablet 2-0 5-10 00:00: 00 Yes [id number] 10mg Take 1 tablet by mouth at bedtime. [facility] lisinopriL 10 mg tablet 2-0 5-10 00:00: 00 Yes [id number] 10mg Take 1 tablet by mouth daily. [facility] montelukast (SINGULAIR) 10 mg tablet 2-0 5-10 00:00: 00 Yes [id number] 10mg Take 1 tablet by mouth at bedtime. [facility] lisinopriL 10 mg tablet 2-0 5-10 00:00: 00 Yes [id number] 10mg Take 1 tablet by mouth daily. [facility] montelukast (SINGULAIR) 10 mg tablet 2-0 5-10 00:00: 00 Yes [id number] 10mg Take 1 tablet by mouth at bedtime. [facility] lisinopriL 10 mg tablet 2-0 5-10 00:00: 00 Yes [id number] 10mg Take 1 tablet by mouth daily. [facility] montelukast (SINGULAIR) 10 mg tablet 2-0 5-10 00:00: 00 Yes [id number] 10mg Take 1 tablet by mouth at bedtime. [facility] lisinopriL 10 mg tablet 2-0 5-10 00:00: 00 Yes [id number] 10mg Take 1 tablet by mouth daily. [facility] montelukast (SINGULAIR) 10 mg tablet 2-0 5-10 00:00: 00 Yes [id number] 10mg Take 1 tablet by mouth at bedtime. [facility] lisinopriL 10 mg tablet 2-0 5-10 00:00: 00 Yes [id number] 10mg Take 1 tablet by mouth daily. [facility] montelukast (SINGULAIR) 10 mg tablet 2022-0 5-10 00:00: 00 Yes [id number] 10mg Take 1 tablet by mouth at bedtime. [facility] lisinopriL 10 mg tablet 2-0 5-10 00:00: 00 Yes [id number] 10mg Take 1 tablet by mouth daily. [facility] montelukast (SINGULAIR) 10 mg tablet 2-0 5-10 00:00: 00 Yes [id number] 10mg Take 1 tablet by mouth at bedtime. [facility] lisinopriL 10 mg tablet 2-0 5-10 00:00: 00 Yes [id number] 10mg Take 1 tablet by mouth daily. [facility] montelukast (SINGULAIR) 10 mg tablet 2-0 5-10 00:00: 00 Yes [id number] 10mg Take 1 tablet by mouth at bedtime. [facility] lisinopriL 10 mg tablet 2-0 5-10 00:00: 00 Yes [id number] 10mg Take 1 tablet by mouth daily. [facility] montelukast (SINGULAIR) 10 mg tablet 2-0 5-10 00:00: 00 Yes [id number] 10mg Take 1 tablet by mouth at bedtime. [facility] lisinopriL 10 mg tablet 2-0 5-10 00:00: 00 Yes [id number] 10mg Take 1 tablet by mouth daily. [facility] montelukast (SINGULAIR) 10 mg tablet 2-0 5-10 00:00: 00 Yes [id number] 10mg Take 1 tablet by mouth at bedtime. [facility] lisinopriL 10 mg tablet 2-0 5-10 00:00: 00 Yes [id number] 10mg Take 1 tablet by mouth daily. [facility] montelukast (SINGULAIR) 10 mg tablet 2-0 5-10 00:00: 00 Yes [id number] 10mg Take 1 tablet by mouth at bedtime. [facility] lisinopriL 10 mg tablet 2-0 5-10 00:00: 00 Yes [id number] 10mg Take 1 tablet by mouth daily. [facility] montelukast (SINGULAIR) 10 mg tablet 2-0 5-10 00:00: 00 Yes [id number] 10mg Take 1 tablet by mouth at bedtime. [facility] lisinopriL 10 mg tablet 2-0 5-10 00:00: 00 Yes [id number] 10mg Take 1 tablet by mouth daily. [facility] montelukast (SINGULAIR) 10 mg tablet 2-0 5-10 00:00: 00 Yes [id number] 10mg Take 1 tablet by mouth at bedtime. [facility] lisinopriL 10 mg tablet 2-0 5-10 00:00: 00 Yes [id number] 10mg Take 1 tablet by mouth daily. [facility] montelukast (SINGULAIR) 10 mg tablet 2-0 5-10 00:00: 00 Yes [id number] 10mg Take 1 tablet by mouth at bedtime. [facility] lisinopriL 10 mg tablet 2-0 5-10 00:00: 00 Yes [id number] 10mg Take 1 tablet by mouth daily. [facility] montelukast (SINGULAIR) 10 mg tablet 2-0 5-10 00:00: 00 Yes [id number] 10mg Take 1 tablet by mouth at bedtime. [facility] lisinopriL 10 mg tablet 2-0 5-10 00:00: 00 Yes [id number] 10mg Take 1 tablet by mouth daily. [facility] montelukast (SINGULAIR) 10 mg tablet 2-0 5-10 00:00: 00 Yes [id number] 10mg Take 1 tablet by mouth at bedtime. [facility] lisinopriL 10 mg tablet 2-0 5-10 00:00: 00 Yes [id number] 10mg Take 1 tablet by mouth daily. [facility] montelukast (SINGULAIR) 10 mg tablet 2-0 5-10 00:00: 00 Yes [id number] 10mg Take 1 tablet by mouth at bedtime. [facility] lisinopriL 10 mg tablet 2-0 5-10 00:00: 00 Yes [id number] 10mg Take 1 tablet by mouth daily. [facility] montelukast (SINGULAIR) 10 mg tablet 2021-0 10 00:00: 00 Yes [id number] 10mg Take 1 tablet by mouth at bedtime. [facility] lisinopriL 10 mg tablet 2021-0 10 00:00: 00 Yes [id number] 10mg Take 1 tablet by mouth daily. [facility] montelukast (SINGULAIR) 10 mg tablet 2021-0 -10 00:00: 00 Yes [id number] 10mg Take 1 tablet by mouth at bedtime. [facility] lisinopriL 10 mg tablet 0 10 00:00: 00 Yes [id number] 10mg Take 1 tablet by mouth daily. [facility] montelukast (SINGULAIR) 10 mg tablet 2021-0 10 00:00: 00 Yes [id number] 10mg Take 1 tablet by mouth at bedtime. [facility] lisinopriL 10 mg tablet 2021-0 10 00:00: 00 Yes [id number] 10mg Take 1 tablet by mouth daily. [facility] montelukast (SINGULAIR) 10 mg tablet 0 10 00:00: 00 Yes [id number] 10mg Take 1 tablet by mouth at bedtime. [facility] lisinopriL 10 mg tablet 2021-0 10 00:00: 00 Yes [id number] 10mg Take 1 tablet by mouth daily. [facility] montelukast (SINGULAIR) 10 mg tablet 2021-0 10 00:00: 00 Yes [id number] 10mg Take 1 tablet by mouth at bedtime. [facility] gabapentin 800 mg tablet 01-27 00:00: 00 Yes [id number] 800mg Take 1 tablet by mouth 2 (two) times daily. [facility] Blood-Gluco se Meter Kit 01-27 00:00: 00 Yes [id number] Check sugars 1 times a day. Dx Code E11.9. Brand per insurance. [facility] blood sugar diagnostic strip 01-27 00:00: 00 Yes [id number] Check sugars 1 times a day. Dx Code E11.9. Brand per insurance. [facility] Lancets Misc 01-27 00:00: 00 Yes [id number] Check sugars 1 times a day. Dx Code E11.9. Brand per insurance. [facility] gabapentin 800 mg tablet 01-27 00:00: 00 Yes [id number] 800mg Take 1 tablet by mouth 2 (two) times daily. [facility] Blood-Gluco se Meter Kit 01-27 00:00: 00 Yes [id number] Check sugars 1 times a day. Dx Code E11.9. Brand per insurance. [facility] blood sugar diagnostic strip 01-27 00:00: 00 Yes [id number] Check sugars 1 times a day. Dx Code E11.9. Brand per insurance. [facility] Lancets Misc 01-27 00:00: 00 Yes [id number] Check sugars 1 times a day. Dx Code E11.9. Brand per insurance. [facility] gabapentin 800 mg tablet 01-27 00:00: 00 Yes [id number] 800mg Take 1 tablet by mouth 2 (two) times daily. [facility] Blood-Gluco se Meter Kit 01-27 00:00: 00 Yes [id number] Check sugars 1 times a day. Dx Code E11.9. Brand per insurance. [facility] blood sugar diagnostic strip 01-27 00:00: 00 Yes [id number] Check sugars 1 times a day. Dx Code E11.9. Brand per insurance. [facility] Lancets Misc 01-27 00:00: 00 Yes [id number] Check sugars 1 times a day. Dx Code E11.9. Brand per insurance. [facility] gabapentin 800 mg tablet 01-27 00:00: 00 Yes [id number] 800mg Take 1 tablet by mouth 2 (two) times daily. [facility] Blood-Gluco se Meter Kit 01-27 00:00: 00 Yes [id number] Check sugars 1 times a day. Dx Code E11.9. Brand per insurance. [facility] blood sugar diagnostic strip 01-27 00:00: 00 Yes [id number] Check sugars 1 times a day. Dx Code E11.9. Brand per insurance. [facility]: 00 Yes [id number] Check sugars 1 times a day. Dx Code E11.9. Brand per insurance. [facility] gabapentin 800 mg tablet 01-27 00:00: 00 Yes [id number] 800mg Take 1 tablet by mouth 2 (two) times daily. [facility] Blood-Gluco se Meter Kit 01-27 00:00: 00 Yes [id number] Check sugars 1 times a day. Dx Code E11.9. Brand per insurance. [facility] blood sugar diagnostic strip 01-27 00:00: 00 Yes [id number] Check sugars 1 times a day. Dx Code E11.9. Brand per insurance. [facility] 01-27 00:00: 00 Yes [id number] Check sugars 1 times a day. Dx Code E11.9. Brand per insurance. [facility] gabapentin 800 mg tablet 01-27 00:00: 00 Yes [id number] 800mg Take 1 tablet by mouth 2 (two) times daily. [facility] Blood-Gluco se Meter Kit 01-27 00:00: 00 Yes [id number] Check sugars 1 times a day. Dx Code E11.9. Brand per insurance. [facility] blood sugar diagnostic strip 01-27 00:00: 00 Yes [id number] Check sugars 1 times a day. Dx Code E11.9. Brand per insurance. [facility] 01-27 00:00: 00 Yes [id number] Check sugars 1 times a day. Dx Code E11.9. Brand per insurance. [facility] gabapentin 800 mg tablet 01-27 00:00: 00 Yes [id number] 800mg Take 1 tablet by mouth 2 (two) times daily. [facility] Blood-Gluco se Meter Kit 01-27 00:00: 00 Yes [id number] Check sugars 1 times a day. Dx Code E11.9. Brand per insurance. [facility] blood sugar diagnostic strip 01-27 00:00: 00 Yes [id number] Check sugars 1 times a day. Dx Code E11.9. Brand per insurance. [facility] Mis 01-27 00:00: 00 Yes [id number] Check sugars 1 times a day. Dx Code E11.9. Brand per insurance. [facility] gabapentin 800 mg tablet 01-27 00:00: 00 Yes [id number] 800mg Take 1 tablet by mouth 2 (two) times daily. [facility] Blood-Gluco se Meter Kit 01-27 00:00: 00 Yes [id number] Check sugars 1 times a day. Dx Code E11.9. Brand per insurance. [facility] blood sugar diagnostic strip 01-27 00:00: 00 Yes [id number] Check sugars 1 times a day. Dx Code E11.9. Brand per insurance. [facility] Mis 01-27 00:00: 00 Yes [id number] Check sugars 1 times a day. Dx Code E11.9. Brand per insurance. [facility] gabapentin 800 mg tablet 01-27 00:00: 00 Yes [id number] 800mg Take 1 tablet by mouth 2 (two) times daily. [facility] Blood-Gluco se Meter Kit 01-27 00:00: 00 Yes [id number] Check sugars 1 times a day. Dx Code E11.9. Brand per insurance. [facility] blood sugar diagnostic strip 01-27 00:00: 00 Yes [id number] Check sugars 1 times a day. Dx Code E11.9. Brand per insurance. [facility] Mis 01-27 00:00: 00 Yes [id number] Check sugars 1 times a day. Dx Code E11.9. Brand per insurance. [facility] gabapentin 800 mg tablet 01-27 00:00: 00 Yes [id number] 800mg Take 1 tablet by mouth 2 (two) times daily. [facility] Blood-Gluco se Meter Kit 01-27 00:00: 00 Yes [id number] Check sugars 1 times a day. Dx Code E11.9. Brand per insurance. [facility] blood sugar diagnostic strip 01-27 00:00: 00 Yes [id number] Check sugars 1 times a day. Dx Code E11.9. Brand per insurance. [facility] Lancets Misc 01-27 00:00: 00 Yes [id number] Check sugars 1 times a day. Dx Code E11.9. Brand per insurance. [facility] gabapentin 800 mg tablet 01-27 00:00: 00 Yes [id number] 800mg Take 1 tablet by mouth 2 (two) times daily. [facility] Blood-Gluco se Meter Kit 01-27 00:00: 00 Yes [id number] Check sugars 1 times a day. Dx Code E11.9. Brand per insurance. [facility] blood sugar diagnostic strip 01-27 00:00: 00 Yes [id number] Check sugars 1 times a day. Dx Code E11.9. Brand per insurance. [facility] Lanc[facility] Misc 01-27 00:00: 00 Yes [id number] Check sugars 1 times a day. Dx Code E11.9. Brand per insurance. [facility] gabapentin 800 mg tablet 01-27 00:00: 00 Yes [id number] 800mg Take 1 tablet by mouth 2 (two) times daily. [facility] Blood-Gluco se Meter Kit 01-27 00:00: 00 Yes [id number] Check sugars 1 times a day. Dx Code E11.9. Brand per insurance. [facility] blood sugar diagnostic strip 01-27 00:00: 00 Yes [id number] Check sugars 1 times a day. Dx Code E11.9. Brand per insurance. [facility] Mis 01-27 00:00: 00 Yes [id number] Check sugars 1 times a day. Dx Code E11.9. Brand per insurance. [facility] gabapentin 800 mg tablet 01-27 00:00: 00 Yes [id number] 800mg Take 1 tablet by mouth 2 (two) times daily. [facility] Blood-Gluco se Meter Kit 01-27 00:00: 00 Yes [id number] Check sugars 1 times a day. Dx Code E11.9. Brand per insurance. [facility] blood sugar diagnostic strip 01-27 00:00: 00 Yes [id number] Check sugars 1 times a day. Dx Code E11.9. Brand per insurance. [facility] 01-27 00:00: 00 Yes [id number] Check sugars 1 times a day. Dx Code E11.9. Brand per insurance. [facility] Blood-Gluco se Meter Kit 01-27 00:00: 00 Yes [id number] Check sugars 1 times a day. Dx Code E11.9. Brand per insurance. [facility] blood sugar diagnostic strip 01-27 00:00: 00 Yes [id number] Check sugars 1 times a day. Dx Code E11.9. Brand per insurance. [facility] Lancets Misc 01-27 00:00: 00 Yes [id number] Check sugars 1 times a day. Dx Code E11.9. Brand per insurance. [facility] Blood-Gluco se Meter Kit 01-27 00:00: 00 Yes [id number] Check sugars 1 times a day. Dx Code E11.9. Brand per insurance. [facility] blood sugar diagnostic strip 01-27 00:00: 00 Yes [id number] Check sugars 1 times a day. Dx Code E11.9. Brand per insurance. [facility] Lanc[facility] Misc 01-27 00:00: 00 Yes [id number] Check sugars 1 times a day. Dx Code E11.9. Brand per insurance. [facility] Blood-Gluco se Meter Kit 01-27 00:00: 00 Yes [id number] Check sugars 1 times a day. Dx Code E11.9. Brand per insurance. [facility] blood sugar diagnostic strip 01-27 00:00: 00 Yes [id number] Check sugars 1 times a day. Dx Code E11.9. Brand per insurance. [facility] Lancets Misc 01-27 00:00: 00 Yes [id number] Check sugars 1 times a day. Dx Code E11.9. Brand per insurance. [facility] Blood-Gluco se Meter Kit 01-27 00:00: 00 Yes [id number] Check sugars 1 times a day. Dx Code E11.9. Brand per insurance. [facility] blood sugar diagnostic strip 01-27 00:00: 00 Yes [id number] Check sugars 1 times a day. Dx Code E11.9. Brand per insurance. [facility] Lanc[facility] Misc 01-27 00:00: 00 Yes [id number] Check sugars 1 times a day. Dx Code E11.9. Brand per insurance. [facility] Blood-Gluco se Meter Kit 01-27 00:00: 00 Yes [id number] Check sugars 1 times a day. Dx Code E11.9. Brand per insurance. [facility] blood sugar diagnostic strip 01-27 00:00: 00 Yes [id number] Check sugars 1 times a day. Dx Code E11.9. Brand per insurance. [facility] Lancets Misc 01-27 00:00: 00 Yes [id number] Check sugars 1 times a day. Dx Code E11.9. Brand per insurance. [facility] Blood-Gluco se Meter Kit 01-27 00:00: 00 Yes [id number] Check sugars 1 times a day. Dx Code E11.9. Brand per insurance. [facility] blood sugar diagnostic strip 01-27 00:00: 00 Yes [id number] Check sugars 1 times a day. Dx Code E11.9. Brand per insurance. [facility] Mis 01-27 00:00: 00 Yes [id number] Check sugars 1 times a day. Dx Code E11.9. Brand per insurance. [facility] Blood-Gluco se Meter Kit 01-27 00:00: 00 Yes [id number] Check sugars 1 times a day. Dx Code E11.9. Brand per insurance. [facility] blood sugar diagnostic strip 01-27 00:00: 00 Yes [id number] Check sugars 1 times a day. Dx Code E11.9. Brand per insurance. [facility] Lancets [facility] 01-27 00:00: 00 Yes [id number] Check sugars 1 times a day. Dx Code E11.9. Brand per insurance. [facility] Blood-Gluco se Meter Kit 01-27 00:00: 00 Yes [id number] Check sugars 1 times a day. Dx Code E11.9. Brand per insurance. [facility] blood sugar diagnostic strip 01-27 00:00: 00 Yes [id number] Check sugars 1 times a day. Dx Code E11.9. Brand per insurance. [facility] Mis 01-27 00:00: 00 Yes [id number] Check sugars 1 times a day. Dx Code E11.9. Brand per insurance. [facility] Blood-Gluco se Meter Kit 01-27 00:00: 00 Yes [id number] Check sugars 1 times a day. Dx Code E11.9. Brand per insurance. [facility] blood sugar diagnostic strip 01-27 00:00: 00 Yes [id number] Check sugars 1 times a day. Dx Code E11.9. Brand per insurance. [facility] Mis 01-27 00:00: 00 Yes [id number] Check sugars 1 times a day. Dx Code E11.9. Brand per insurance. [facility] Blood-Gluco se Meter Kit 01-27 00:00: 00 Yes [id number] Check sugars 1 times a day. Dx Code E11.9. Brand per insurance. [facility] blood sugar diagnostic strip 01-27 00:00: 00 Yes [id number] Check sugars 1 times a day. Dx Code E11.9. Brand per insurance. [facility] Lanc[facility] Misc 01-27 00:00: 00 Yes [id number] Check sugars 1 times a day. Dx Code E11.9. Brand per insurance. [facility] gabapentin 800 mg tablet 01-27 00:00: 00 01-12 00:00 :00 No [id number] 800mg Take 1 tablet by mouth 2 (two) times daily. [facility] albuterol 90 mcg/actuati on inhaler 2020-09 00:00: 00 Yes [id number] 2{puff} Inhale 2 Puffs every 6 (six) hours as needed for Wheezing or Shortness of Breath. [facility] albuterol 90 mcg/actuati on inhaler 2020-09 00:00: 00 Yes [id number] 2{puff} Inhale 2 Puffs every 6 (six) hours as needed for Wheezing or Shortness of Breath. [facility] albuterol 90 mcg/actuati on inhaler 2020-09 00:00: 00 Yes [id number] 2{puff} Inhale 2 Puffs every 6 (six) hours as needed for Wheezing or Shortness of Breath. [facility] albuterol 90 mcg/actuati on inhaler 2020-09 00:00: 00 Yes [id number] 2{puff} Inhale 2 Puffs every 6 (six) hours as needed for Wheezing or Shortness of Breath. [facility] albuterol 90 mcg/actuati on inhaler 2020-09 00:00: 00 Yes [id number] 2{puff} Inhale 2 Puffs every 6 (six) hours as needed for Wheezing or Shortness of Breath. [facility] albuterol 90 mcg/actuati on inhaler 2020-09 00:00: 00 Yes [id number] 2{puff} Inhale 2 Puffs every 6 (six) hours as needed for Wheezing or Shortness of Breath. [facility] albuterol 90 mcg/actuati on inhaler 2020-09 00:00: 00 Yes [id number] 2{puff} Inhale 2 Puffs every 6 (six) hours as needed for Wheezing or Shortness of Breath. [facility] albuterol 90 mcg/actuati on inhaler 2020-09 00:00: 00 Yes [id number] 2{puff} Inhale 2 Puffs every 6 (six) hours as needed for Wheezing or Shortness of Breath. [facility] albuterol 90 mcg/actuati on inhaler 2020-09 00:00: 00 Yes [id number] 2{puff} Inhale 2 Puffs every 6 (six) hours as needed for Wheezing or Shortness of Breath. [facility] albuterol 90 mcg/actuati on inhaler 2020-09 00:00: 00 Yes [id number] 2{puff} Inhale 2 Puffs every 6 (six) hours as needed for Wheezing or Shortness of Breath. [facility] albuterol 90 mcg/actuati on inhaler 2020-09 00:00: 00 12-16 00:00 :00 No [id number] 2{puff} Inhale 2 Puffs every 6 (six) hours as needed for Wheezing or Shortness of Breath. [facility] melatonin 10 mg Tab 12-03 00:00: 00 Yes [id number] 10mg Take 10 mg by mouth at bedtime. [facility] melatonin 10 mg Tab 12-03 00:00: 00 Yes [id number] 10mg Take 10 mg by mouth at bedtime. [facility] melatonin 10 mg Tab 12-03 00:00: 00 Yes [id number] 10mg Take 10 mg by mouth at bedtime. [facility] melatonin 10 mg Tab 12-03 00:00: 00 Yes [id number] 10mg Take 10 mg by mouth at bedtime. [facility] melatonin 10 mg Tab 2021-0 3-08 00:00: 00 Yes [id number] 10mg Take 10 mg by mouth at bedtime. [facility] melatonin 10 mg Tab 2021-0 3- 00:00: 00 Yes [id number] 10mg Take 10 mg by mouth at bedtime. [facility] melatonin 10 mg Tab 2021-0 3- 00:00: 00 Yes [id number] 10mg Take 10 mg by mouth at bedtime. [facility] melatonin 10 mg Tab 2021-0 3- 00:00: 00 Yes [id number] 10mg Take 10 mg by mouth at bedtime. [facility] melatonin 10 mg Tab 2021-0 3- 00:00: 00 Yes [id number] 10mg Take 10 mg by mouth at bedtime. [facility] melatonin 10 mg Tab 2021-0 3- 00:00: 00 Yes [id number] 10mg Take 10 mg by mouth at bedtime. [facility] melatonin 10 mg Tab 2021-0 3- 00:00: 00 Yes [id number] 10mg Take 10 mg by mouth at bedtime. [facility] melatonin 10 mg Tab 2021-0 3- 00:00: 00 Yes [id number] 10mg Take 10 mg by mouth at bedtime. [facility] melatonin 10 mg Tab 2021-0 3- 00:00: 00 Yes [id number] 10mg Take 10 mg by mouth at bedtime. [facility] melatonin 10 mg Tab 2021-0 3- 00:00: 00 Yes [id number] 10mg Take 10 mg by mouth at bedtime. [facility] melatonin 10 mg Tab 2021-0 3- 00:00: 00 Yes [id number] 10mg Take 10 mg by mouth at bedtime. [facility] melatonin 10 mg Tab 2021-0 3- 00:00: 00 Yes [id number] 10mg Take 10 mg by mouth at bedtime. [facility] melatonin 10 mg Tab 2021-0 3- 00:00: 00 Yes [id number] 10mg Take 10 mg by mouth at bedtime. [facility] melatonin 10 mg Tab 2021-0 3-08 00:00: 00 Yes [id number] 10mg Take 10 mg by mouth at bedtime. [facility] melatonin 10 mg Tab 2021-0 3- 00:00: 00 Yes [id number] 10mg Take 10 mg by mouth at bedtime. [facility] melatonin 10 mg Tab 2021-0 3- 00:00: 00 Yes [id number] 10mg Take 10 mg by mouth at bedtime. [facility] melatonin 10 mg Tab 2021-0 3- 00:00: 00 Yes [id number] 10mg Take 10 mg by mouth at bedtime. [facility] melatonin 10 mg Tab 2021-0 3- 00:00: 00 Yes [id number] 10mg Take 10 mg by mouth at bedtime. [facility] melatonin 10 mg Tab 2021-0 3 00:00: 00 Yes [id number] 10mg Take 10 mg by mouth at bedtime. [facility] melatonin 10 mg Tab 2021-0 3 00:00: 00 Yes [id number] 10mg Take 10 mg by mouth at bedtime. [facility] Immunizations Ordered Immunization Name Filled Immunization Name Date Status Comments Source Influenza Virus Vaccine,quad Im,preserve Free 2022-06-27 00:00:00 Completed [facility] Influenza Virus Vaccine,quad Im,preserve Free 2022-06-27 00:00:00 Completed [facility] Influenza Virus Vaccine,quad Im,preserve Free 2022-06-27 00:00:00 Completed [facility] Influenza Virus Vaccine,quad Im,preserve Free 652022-06-27 00:00:00 Completed [facility] Influenza Virus Vaccine,quad Im,preserve Free 2022-06-27 00:00:00 Completed [facility] Influenza Virus Vaccine,quad Im,preserve Free 65+ 2022-06-27 00:00:00 Completed [facility] Influenza Virus Vaccine,quad Im,preserve Free 652022-06-27 00:00:00 Completed [facility] Influenza Virus Vaccine,quad Im,preserve Free 65+ 2022-06-27 00:00:00 Completed [facility] Influenza Virus Vaccine,quad Im,preserve Free 65+ 2022-06-27 00:00:00 Completed [facility] Influenza Virus Vaccine,quad Im,preserve Free 65+ 2022-06-27 00:00:00 Completed [facility] Influenza Virus Vaccine,quad Im,preserve Free 65+ 2022-06-27 00:00:00 Completed [facility] Influenza Virus Vaccine,quad Im,preserve Free 652022-06-27 00:00:00 Completed [facility] Influenza Virus Vaccine,quad Im,preserve Free 65+ 2022-06-27 00:00:00 Completed [facility] Influenza Virus Vaccine,quad Im,preserve Free 652022-06-27 00:00:00 Completed [facility] Influenza Virus Vaccine,quad Im,preserve Free 65+ 2022-06-27 00:00:00 Completed [facility] Influenza Virus Vaccine,quad Im,preserve Free 2022-06-27 00:00:00 Completed [facility] SARS-COV-2 COVID-19 MODERNA 0.25ML BOOSTER VACCINE 2021-07-29 00:00:00 Completed [facility] SARS-COV-2 COVID-19 MODERNA 0.25ML BOOSTER VACCINE 2021-07-29 00:00:00 Completed [facility] SARS-COV-2 COVID-19 MODERNA 0.25ML BOOSTER VACCINE 2021-07-29 00:00:00 Completed [facility] SARS-COV-2 COVID-19 MODERNA 0.25ML BOOSTER VACCINE 2021-07-29 00:00:00 Completed [facility] SARS-COV-2 COVID-19 MODERNA 0.25ML BOOSTER VACCINE 2021-07-29 00:00:00 Completed [facility] SARS-COV-2 COVID-19 MODERNA 0.25ML BOOSTER VACCINE 2021-07-29 00:00:00 Completed [facility] SARS-COV-2 COVID-19 MODERNA 0.25ML BOOSTER VACCINE 2021-07-29 00:00:00 Completed [facility] SARS-COV-2 COVID-19 MODERNA 0.25ML BOOSTER VACCINE 2021-07-29 00:00:00 Completed [facility] SARS-COV-2 COVID-19 MODERNA 0.25ML BOOSTER VACCINE 2021-07-29 00:00:00 Completed [facility] SARS-COV-2 COVID-19 MODERNA 0.25ML BOOSTER VACCINE 2021-07-29 00:00:00 Completed [facility] SARS-COV-2 COVID-19 MODERNA 0.25ML BOOSTER VACCINE 2021-07-29 00:00:00 Completed [facility] SARS-COV-2 COVID-19 MODERNA 0.25ML BOOSTER VACCINE 2021-07-29 00:00:00 Completed [facility] SARS-COV-2 COVID-19 MODERNA 0.25ML BOOSTER VACCINE 2021-07-29 00:00:00 Completed [facility] SARS-COV-2 COVID-19 MODERNA 0.25ML BOOSTER VACCINE 2021-07-29 00:00:00 Completed [facility] SARS-COV-2 COVID-19 MODERNA 0.25ML BOOSTER VACCINE 2021-07-29 00:00:00 Completed [facility] [facility] SARS-COV-2 COVID-19 MODERNA 0.25ML BOOSTER VACCINE 2021-07-29 00:00:00 Completed [facility] SARS-COV-2 COVID-19 MODERNA 0.25ML BOOSTER VACCINE 2021-07-29 00:00:00 Completed [facility] SARS-COV-2 COVID-19 MODERNA 0.25ML BOOSTER VACCINE 2021-07-29 00:00:00 Completed [facility] SARS-COV-2 COVID-19 MODERNA 0.25ML BOOSTER VACCINE 2021-07-29 00:00:00 Completed [facility] Influenza High Dose 2021-07-11 00:00:00 Completed [facility] Influenza High Dose 2021-07-11 00:00:00 Completed [facility] Influenza High Dose 2021-07-11 00:00:00 Completed [facility] Influenza High Dose 2021-07-11 00:00:00 Completed [facility] Influenza High Dose 2021-07-11 00:00:00 Completed [facility] Influenza High Dose 2021-07-11 00:00:00 Completed [facility] Influenza High Dose 2021-07-11 00:00:00 Completed [facility] Influenza High Dose 2021-07-11 00:00:00 Completed [facility] Influenza High Dose 2021-07-11 00:00:00 Completed [facility] Influenza High Dose 2021-07-11 00:00:00 Completed [facility] Influenza High Dose 2021-07-11 00:00:00 Completed [facility] Influenza High Dose 2021-07-11 00:00:00 Completed [facility] Influenza High Dose 2021-07-11 00:00:00 Completed [facility] Influenza High Dose 2021-07-11 00:00:00 Completed [facility] Influenza High Dose 2021-07-11 00:00:00 Completed [facility] Influenza High Dose 2021-07-11 00:00:00 Completed [facility] Influenza High Dose 2021-07-11 00:00:00 Completed [facility] Influenza High Dose 2021-07-11 00:00:00 Completed [facility] Influenza High Dose 2021-07-11 00:00:00 Completed [facility] SARS-COV-2 COVID-19 MODERNA VACCINE 2020-11-05 00:00:00 Completed [facility] SARS-COV-2 COVID-19 MODERNA VACCINE 2020-11-05 00:00:00 Completed [facility] SARS-COV-2 COVID-19 MODERNA 12+ YRS VACCINE 2020-11-05 00:00:00 Completed [facility] SARS-COV-2 COVID-19 MODERNA 12+ YRS VACCINE 2020-11-05 00:00:00 Completed [facility] SARS-COV-2 COVID-19 MODERNA 12+ YRS VACCINE 2020-11-05 00:00:00 Completed [facility] SARS-COV-2 COVID-19 MODERNA 12+ YRS VACCINE 2020-11-05 00:00:00 Completed [facility] SARS-COV-2 COVID-19 MODERNA 12+ YRS VACCINE 2020-11-05 00:00:00 Completed [facility] SARS-COV-2 COVID-19 MODERNA 12+ YRS VACCINE 2020-11-05 00:00:00 Completed [facility] SARS-COV-2 COVID-19 MODERNA 12+ YRS VACCINE 2020-11-05 00:00:00 Completed [facility] SARS-COV-2 COVID-19 MODERNA 12+ YRS VACCINE 2020-11-05 00:00:00 Completed [facility] SARS-COV-2 COVID-19 MODERNA 12+ YRS VACCINE 2020-11-05 00:00:00 Completed [facility] SARS-COV-2 COVID-19 MODERNA 12+ YRS VACCINE 2020-11-05 00:00:00 Completed [facility] SARS-COV-2 COVID-19 MODERNA 12+ YRS VACCINE 2020-11-05 00:00:00 Completed [facility] SARS-COV-2 COVID-19 MODERNA 12+ YRS VACCINE 2020-11-05 00:00:00 Completed [facility] SARS-COV-2 COVID-19 MODERNA 12+ YRS VACCINE 2020-11-05 00:00:00 Completed [facility] SARS-COV-2 COVID-19 MODERNA 12+ YRS VACCINE 2020-11-05 00:00:00 Completed [facility] SARS-COV-2 COVID-19 MODERNA 12+ YRS VACCINE 2020-11-05 00:00:00 Completed [facility] SARS-COV-2 COVID-19 MODERNA 12+ YRS VACCINE 2020-11-05 00:00:00 Completed [facility] SARS-COV-2 COVID-19 MODERNA 12+ YRS VACCINE 2020-11-05 00:00:00 Completed [facility] SARS-COV-2 COVID-19 MODERNA 12+ YRS VACCINE 2020-10-08 00:00:00 Completed [facility] SARS-COV-2 COVID-19 MODERNA 12+ YRS VACCINE 2020-10-08 00:00:00 Completed [facility] SARS-COV-2 COVID-19 MODERNA 12+ YRS VACCINE 2020-10-08 00:00:00 Completed [facility] SARS-COV-2 COVID-19 MODERNA 12+ YRS VACCINE 2020-10-08 00:00:00 Completed [facility] SARS-COV-2 COVID-19 MODERNA 12+ YRS VACCINE 2020-10-08 00:00:00 Completed [facility] SARS-COV-2 COVID-19 MODERNA 12+ YRS VACCINE 2020-10-08 00:00:00 Completed [facility] SARS-COV-2 COVID-19 MODERNA 12+ YRS VACCINE 2020-10-08 00:00:00 Completed [facility] SARS-COV-2 COVID-19 MODERNA 12+ YRS VACCINE 2020-10-08 00:00:00 Completed [facility] SARS-COV-2 COVID-19 MODERNA 12+ YRS VACCINE 2020-10-08 00:00:00 Completed [facility] SARS-COV-2 COVID-19 MODERNA 12+ YRS VACCINE 2020-10-08 00:00:00 Completed [facility] SARS-COV-2 COVID-19 MODERNA 12+ YRS VACCINE 2020-10-08 00:00:00 Completed [facility] SARS-COV-2 COVID-19 MODERNA 12+ YRS VACCINE 2020-10-08 00:00:00 Completed [facility] SARS-COV-2 COVID-19 MODERNA VACCINE 2020-10-08 00:00:00 Completed [facility] SARS-COV-2 COVID-19 MODERNA VACCINE 2020-10-08 00:00:00 Completed [facility] SARS-COV-2 COVID-19 MODERNA 12+ YRS VACCINE 2020-10-08 00:00:00 Completed [facility] SARS-COV-2 COVID-19 MODERNA 12+ YRS VACCINE 2020-10-08 00:00:00 Completed [facility] SARS-COV-2 COVID-19 MODERNA 12+ YRS VACCINE 2020-10-08 00:00:00 Completed [facility] SARS-COV-2 COVID-19 MODERNA 12+ YRS VACCINE 2020-10-08 00:00:00 Completed [facility] SARS-COV-2 COVID-19 MODERNA 12+ YRS VACCINE 2020-10-08 00:00:00 Completed [facility] Influenza Virus Vaccine Quad .5 mL IM 6+ MO 2020-06-29 00:00:00 Completed [facility] Influenza Virus Vaccine Quad .5 mL IM 6+ MO 2020-06-29 00:00:00 Completed [facility] Influenza Virus Vaccine Quad .5 mL IM 6+ MO 2020-06-29 00:00:00 Completed [facility] Influenza Virus Vaccine Quad .5 mL IM 6+ MO 2020-06-29 00:00:00 Completed [facility] Influenza Virus Vaccine Quad .5 mL IM 6+ MO 2020-06-29 00:00:00 Completed [facility] Influenza Virus Vaccine Quad .5 mL IM 6+ MO 2020-06-29 00:00:00 Completed [facility] Influenza Virus Vaccine Quad .5 mL IM 6+ MO 2020-06-29 00:00:00 Completed [facility] Influenza Virus Vaccine Quad .5 mL IM 6+ MO 2020-06-29 00:00:00 Completed [facility] Influenza Virus Vaccine Quad .5 mL IM 6+ MO 2020-06-29 00:00:00 Completed [facility] Influenza Virus Vaccine Quad .5 mL IM 6+ MO 2020-06-29 00:00:00 Completed [facility] Influenza Virus Vaccine Quad .5 mL IM 6+ MO 2020-06-29 00:00:00 Completed [facility] Influenza Virus Vaccine Quad .5 mL IM 6+ MO 2020-06-29 00:00:00 Completed [facility] Influenza Virus Vaccine Quad .5 mL IM 6+ MO 2020-06-29 00:00:00 Completed [facility] Influenza Virus Vaccine Quad .5 mL IM 6+ MO 2020-06-29 00:00:00 Completed [facility] Influenza Virus Vaccine Quad .5 mL IM 6+ MO 2020-06-29 00:00:00 Completed [facility] Influenza Virus Vaccine Quad .5 mL IM 6+ MO 2020-06-29 00:00:00 Completed [facility] Influenza Virus Vaccine Quad .5 mL IM 6+ MO 2020-06-29 00:00:00 Completed [facility] Influenza Virus Vaccine Quad .5 mL IM 6+ MO 2020-06-29 00:00:00 Completed [facility] Influenza Virus Vaccine Quad .5 mL IM 6+ MO 2020-06-29 00:00:00 Completed [facility] Influenza Virus Vaccine Quad .5 mL IM 6+ MO 2019-07-04 00:00:00 Completed [facility] Influenza Virus Vaccine Quad .5 mL IM 6+ MO 2019-07-04 00:00:00 Completed [facility] Influenza Virus Vaccine Quad .5 mL IM 6+ MO 2019-07-04 00:00:00 Completed [facility] Influenza Virus Vaccine Quad .5 mL IM 6+ MO 2019-07-04 00:00:00 Completed [facility] Influenza Virus Vaccine Quad .5 mL IM 6+ MO 2019-07-04 00:00:00 Completed [facility] Influenza Virus Vaccine Quad .5 mL IM 6+ MO 2019-07-04 00:00:00 Completed [facility] Influenza Virus Vaccine Quad .5 mL IM 6+ MO 2019-07-04 00:00:00 Completed [facility] Influenza Virus Vaccine Quad .5 mL IM 6+ MO 2019-07-04 00:00:00 Completed [facility] Influenza Virus Vaccine Quad .5 mL IM 6+ MO 2019-07-04 00:00:00 Completed [facility] Influenza Virus Vaccine Quad .5 mL IM 6+ MO 2019-07-04 00:00:00 Completed [facility] Influenza Virus Vaccine Quad .5 mL IM 6+ MO 2019-07-04 00:00:00 Completed [facility] Influenza Virus Vaccine Quad .5 mL IM 6+ MO 2019-07-04 00:00:00 Completed [facility] Influenza Virus Vaccine Quad .5 mL IM 6+ MO 2019-07-04 00:00:00 Completed [facility] Influenza Virus Vaccine Quad .5 mL IM 6+ MO 2019-07-04 00:00:00 Completed [facility] Influenza Virus Vaccine Quad .5 mL IM 6+ MO 2019-07-04 00:00:00 Completed [facility] Influenza Virus Vaccine Quad .5 mL IM 6+ MO 2019-07-04 00:00:00 Completed [facility] Influenza Virus Vaccine Quad .5 mL IM 6+ MO 2019-07-04 00:00:00 Completed [facility] Influenza Virus Vaccine Quad .5 mL IM 6+ MO 2019-07-04 00:00:00 Completed [facility] Influenza Virus Vaccine Quad .5 mL IM 6+ MO 2019-07-04 00:00:00 Completed [facility] Influenza Virus Vaccine Quad IM 3+ YRS 2018-08-30 00:00:00 Completed [facility] Influenza Virus Vaccine Quad IM 3+ YRS 2018-08-30 00:00:00 Completed [facility] Influenza Virus Vaccine Quad IM 3+ 2018-08-30 00:00:00 Completed [facility] Influenza Virus Vaccine Quad IM 3+ YRS 2018-08-30 00:00:00 Completed [facility] Influenza Virus Vaccine Quad IM 3+ YRS 2018-08-30 00:00:00 Completed [facility] Influenza Virus Vaccine Quad IM 3+ YRS 2018-08-30 00:00:00 Completed [facility] Influenza Virus Vaccine Quad IM 3+ YRS 2018-08-30 00:00:00 Completed [facility] Influenza Virus Vaccine Quad IM 3+ 2018-08-30 00:00:00 Completed [facility] Influenza Virus Vaccine Quad IM 3+ 2018-08-30 00:00:00 Completed [facility] Influenza Virus Vaccine Quad IM 3+ 2018-08-30 00:00:00 Completed [facility] Influenza Virus Vaccine Quad IM 3+ 2018-08-30 00:00:00 Completed [facility] Influenza Virus Vaccine Quad IM 3+ 2018-08-30 00:00:00 Completed [facility] Influenza Virus Vaccine Quad IM 3+ 2018-08-30 00:00:00 Completed [facility] Influenza Virus Vaccine Quad IM 3+ 2018-08-30 00:00:00 Completed [facility] Influenza Virus Vaccine Quad IM 3+ 2018-08-30 00:00:00 Completed [facility] Influenza Virus Vaccine Quad IM 3+ 2018-08-30 00:00:00 Completed [facility] Influenza Virus Vaccine Quad IM 3+ YRS 2018-08-30 00:00:00 Completed [facility] Influenza Virus Vaccine Quad IM 3+ 2018-08-30 00:00:00 Completed [facility] Influenza Virus Vaccine Quad IM 3+ YRS 2018-08-30 00:00:00 Completed [facility] Influenza Virus Vaccine Quad IM 3+ YRS Unknown Completed [facility] Influenza Virus Vaccine Quad .5 mL IM 6+ MO (FLUZONE/FLULAVAL/F LUARIX) Unknown Completed [facility] Influenza Virus Vaccine Quad .5 mL IM 6+ MO (FLUZONE/FLULAVAL/F LUARIX) Unknown Completed [facility] SARS-COV-2 COVID-19 MODERNA 12+ YRS VACCINE Unknown Completed [facility] SARS-COV-2 COVID-19 MODERNA 12+ YRS VACCINE Unknown Completed [facility] Influenza Virus Vaccine Quad IM 3+ YRS Unknown Completed [facility] Influenza Virus Vaccine Quad .5 mL IM 6+ MO (FLUZONE/FLULAVAL/F LUARIX) Unknown Completed [facility] Influenza Virus Vaccine Quad .5 mL IM 6+ MO (FLUZONE/FLULAVAL/F LUARIX) Unknown Completed [facility] SARS-COV-2 COVID-19 MODERNA 12+ YRS VACCINE Unknown Completed [facility] SARS-COV-2 COVID-19 MODERNA 12+ YRS VACCINE Unknown Completed [facility] SARS-COV-2 COVID-19 MODERNA 0.25ML BOOSTER VACCINE Unknown Completed [facility] Influenza High Dose Unknown Completed [facility] Influenza Virus Vaccine,quad Im,preserve Free 65+ (FLUAD) Unknown Completed [facility] Influenza Virus Vaccine Quad IM 3+ YRS Unknown Completed [facility] Influenza Virus Vaccine Quad .5 mL IM 6+ MO (FLUZONE/FLULAVAL/F LUARIX) Unknown Completed [facility] Influenza Virus Vaccine Quad .5 mL IM 6+ MO (FLUZONE/FLULAVAL/F LUARIX) Unknown Completed [facility] SARS-COV-2 COVID-19 MODERNA 12+ YRS VACCINE Unknown Completed [facility] SARS-COV-2 COVID-19 MODERNA 12+ YRS VACCINE Unknown Completed [facility] SARS-COV-2 COVID-19 MODERNA 0.25ML BOOSTER VACCINE Unknown Completed [facility] Influenza High Dose Unknown Completed [facility] Influenza Virus Vaccine,quad Im,preserve Free 65+ (FLUAD) Unknown Completed [facility] Influenza Virus Vaccine Quad IM 3+ YRS Unknown Completed [facility] Influenza Virus Vaccine Quad .5 mL IM 6+ MO (FLUZONE/FLULAVAL/F LUARIX) Unknown Completed [facility] Influenza Virus Vaccine Quad .5 mL IM 6+ MO (FLUZONE/FLULAVAL/F LUARIX) Unknown Completed [facility] SARS-COV-2 COVID-19 MODERNA 12+ YRS VACCINE Unknown Completed [facility] SARS-COV-2 COVID-19 MODERNA 12+ YRS VACCINE Unknown Completed [facility] SARS-COV-2 COVID-19 MODERNA 0.25ML BOOSTER VACCINE Unknown Completed [facility] Influenza High Dose Unknown Completed [facility] Influenza Virus Vaccine,quad Im,preserve Free 65+ (FLUAD) Unknown Completed [facility] Influenza Virus Vaccine Quad IM 3+ YRS Unknown Completed [facility] Influenza Virus Vaccine Quad .5 mL IM 6+ MO (FLUZONE/FLULAVAL/F LUARIX) Unknown Completed [facility] Influenza Virus Vaccine Quad .5 mL IM 6+ MO (FLUZONE/FLULAVAL/F LUARIX) Unknown Completed [facility] SARS-COV-2 COVID-19 MODERNA 12+ YRS VACCINE Unknown Completed [facility] SARS-COV-2 COVID-19 MODERNA 12+ YRS VACCINE Unknown Completed [facility] SARS-COV-2 COVID-19 MODERNA 0.25ML BOOSTER VACCINE Unknown Completed [facility] Influenza High Dose Unknown Completed [facility] Influenza Virus Vaccine,quad Im,preserve Free 65+ (FLUAD) Unknown Completed [facility] Vital Signs Vital Name Observation Time Observation Value Comments S ource Systolic blood pressure 2023-06-30 19:01:00 156 mm[Hg] [facility] Diastolic blood pressure 2023-06-30 19:01:00 80 mm[Hg] [facility] Heart rate 2023-06-30 19:00:00 78 /min [facility] Body temperature 2023-06-30 19:00:00 36.61 [place] [facility] Respiratory rate 2023-06-30 19:00:00 17 /min [facility] Body height 2023-06-30 19:00:00 167.6 cm [facility] Body weight 2023-06-30 19:00:00 79.379 kg [facility] BMI 2023-06-30 19:00:00 28.25 kg/m2 [facility] Systolic blood pressure 2023-04-02 20:13:00 105 mm[Hg] [facility] Diastolic blood pressure 2023-04-02 20:13:00 68 mm[Hg] [facility] Heart rate 2023-04-02 20:13:00 77 /min [facility] Body temperature 2023-04-02 20:13:00 36.89 [place] [facility] Respiratory rate 2023-04-02 20:13:00 18 /min [facility] Body height 2023-04-02 20:13:00 167.6 cm [facility] Body weight 2023-04-02 20:13:00 81.738 kg [facility] BMI 2023-04-02 20:13:00 29.09 kg/m2 [facility] Oxygen saturation in Arterial blood by Pulse oximetry 2023-04-02 20:13:00 98 /min [facility] Systolic blood pressure 2022-12-22 19:38:00 159 mm[Hg] [facility] Diastolic blood pressure 2022-12-22 19:38:00 87 mm[Hg] [facility] Heart rate 2022-12-22 19:38:00 90 /min [facility] Body temperature 2022-12-22 19:38:00 37.11 [place] [facility] Respiratory rate 2022-12-22 19:38:00 18 /min [facility] Body height 2022-12-22 19:38:00 165.1 cm [facility] Body weight 2022-12-22 19:38:00 79.833 kg [facility] BMI 2022-12-22 19:38:00 29.29 kg/m2 [facility] Oxygen saturation in Arterial blood by Pulse oximetry 2022-12-22 19:38:00 100 /min [facility] Systolic blood pressure 2022-12-19 18:00:00 132 mm[Hg] [facility] Diastolic blood pressure 2022-12-19 18:00:00 62 mm[Hg] [facility] Heart rate 2022-12-19 18:00:00 86 /min [facility] Respiratory rate 2022-12-19 18:00:00 17 /min [facility] Oxygen saturation in Arterial blood by Pulse oximetry 2022-12-19 18:00:00 92 /min [facility] Body temperature 2022-12-19 15:35:00 37 [place] [facility] Body height 2022-12-19 15:35:00 [facility] 2022-12-19 15:35:00 80.196 kg [facility] BMI 2022-12-19 15:35:00 29.42 kg/m2 [facility] Systolic blood pressure 2022-08-11 20:44:00 115 mm[Hg] [facility] Diastolic blood pressure 2022-08-11 20:44:00 63 mm[Hg] [facility] Heart rate 2022-08-11 20:44:00 71 /min [facility] Respiratory rate 2022-08-11 20:44:00 18 /min [facility] Body height 2022-08-11 20:44:00 167.6 cm [facility] Body weight 2022-08-11 20:44:00 78.926 kg [facility] BMI 2022-08-11 20:44:00 28.08 kg/m2 [facility] Oxygen saturation in Arterial blood by Pulse oximetry 2022-08-11 20:44:00 96 /min [facility] Systolic blood pressure 2022-07-01 19:40:00 147 mm[Hg] [facility] Diastolic blood pressure 2022-07-01 19:40:00 80 mm[Hg] [facility] Heart rate 2022-07-01 19:40:00 78 /min [facility] Body temperature 2022-07-01 19:40:00 36.89 [place] [facility] Respiratory rate 2022-07-01 19:40:00 18 /min [facility] Body height 2022-07-01 19:40:00 167.6 cm [facility] Body weight 2022-07-01 19:40:00 78.971 kg [facility] BMI 2022-07-01 19:40:00 28.10 kg/m2 [facility] Oxygen saturation in Arterial blood by Pulse oximetry 2022-07-01 19:40:00 94 /min [facility] Systolic blood pressure 2022-04-19 15:59:00 159 mm[Hg] [facility] Diastolic blood pressure 2022-04-19 15:59:00 68 mm[Hg] [facility] Heart rate 2022-04-19 15:59:00 82 /min [facility] Body temperature 2022-04-19 15:59:00 37.22 [place] [facility] Respiratory rate 2022-04-19 15:59:00 22 /min [facility] Body height 2022-04-19 15:59:00 157.5 cm [facility] Body weight 2022-04-19 15:59:00 78.019 kg [facility] BMI 2022-04-19 15:59:00 31.46 kg/m2 [facility] Oxygen saturation in Arterial blood by Pulse oximetry 2022-04-19 15:59:00 97 /min [facility] Systolic blood pressure 2022-04-10 20:39:00 151 mm[Hg] [facility] Diastolic blood pressure 2022-04-10 20:39:00 69 mm[Hg] [facility] Heart rate 2022-04-10 20:39:00 72 /min [facility] Respiratory rate 2022-04-10 20:39:00 18 /min [facility] Body weight 2022-04-10 20:39:00 78.472 [facility] BMI 2022-04-10 20:39:00 27.92 kg/m2 [facility] Oxygen saturation in Arterial blood by Pulse oximetry 2022-04-10 20:39:00 95 /min [facility] Procedures Procedure Date / Time Performed Performing Clinician Source ASSIGNMENT OF BENEFITS 2023-03-30 13:15:53 Docto r Unassigned, [place] [facility] CONSENT/REFUSAL FOR DIAGNOSIS AND TREATMENT 2022-12-22 19:29:44 Doctor Unassigned, [place] [facility] XR CHEST 2 VW 2022-12-19 17:14:21 Luz Ricardo Un [facility] COMP. METABOLIC PANEL ([id number]) 2022-12-19 16:44:00 Luz Ricardo [facility] CBC WITH DIFF 2022-12-19 16:44:00 Luz Ricardo [facility] COVID-19 (ID NOW RAPID TESTING) 2022-12-19 16:44:00 Luz Ricardo [facility] CONSENT/REFUSAL FOR DIAGNOSIS AND TREATMENT 2022-12-19 15:29:19 Doctor Unassigned, [place] [facility] GLYCOSYLATED HEMOGLOBIN (A1C) 2022-08-12 15:01:00 Christine Santoyo [facility] POCT URINALYSIS 2022-07-01 19:53:00 Griselda Wolf [facility] FLU VACC(),65+YR,0 .5 ML,IM,ADJUVANTED,QUAD(F LUAD) 2022-06-27 20:14:09 Christine Santoyo [facility] CONSENT/REFUSAL FOR DIAGNOSIS AND TREATMENT 2022-04-19 15:55:09 Doctor Unassigned, [place] [facility] Encounters Start Date/Time End Date/Time Encounter Type Admission Type Attending Clinicians Care Facility Care Department Encounter ID Source 2021-07-30 03:37:51 Outpatient R YOLIE DELGADO [facility] [id number] [facility] 2021-07-29 10:31:34 Outpatient YOLIE DELGADO [facility] [id number] [facility] 2024-04-05 15:00:00 2024-04-05 15:00:00 Outpatient SHARIFA LAY [facility] [id number] [facility] 2023-10-15 00:00:00 2023-10-15 00:00:00 Outpatient GC_GCBZW_Ka stephanya_S PRIV PRIV [id number] [facility] 2023-10-13 00:00:00 2023-10-13 00:00:00 Outpatient GC_GCBZW_Ka diyala_S PRIV PRIV [id number] [facility] 2023-10-02 00:00:00 2023-10-02 00:00:00 Outpatient GC_GCBZW_Ka diyala_S PRIV PRIV [id number] [facility] 2023-09-25 13:35:51 2023-09-25 23:59:00 Outpatient SHARIFA LAY [facility] [id number] [facility] 2023-09-25 13:35:51 2023-09-25 23:59:00 Hospital Encounter Sharifa Webb [facility] [id number] [facility] 2023 00:00:00 2023 00:00:00 Outpatient [id number]_Ka diyala_S PRIV PRIV [id number] [facility] 2023 00:00:00 2023 00:00:00 Outpatient GC_GCBZW_Ka diyala_S PRIV PRIV [id number] [facility] 2023-08-19 00:00:00 2023-08-19 00:00:00 Outpatient GC_GCBZW_Ka diyala_S PRIV PRIV [id number] [facility] 2023-08-19 00:00:00 2023-08-19 00:00:00 Outpatient GC_GCBZW_Ka diyala_S PRIV PRIV [id number] [facility] 2023-07-27 16:00:00 2023-07-27 16:00:00 Outpatient R [facility] [id number] [facility] 2023-07-15 00:00:00 2023-07-15 00:00:00 Outpatient GC_GCBZW_Ka diyala_S PRIV PRIV [id number] [facility] 2023-07-06 16:45:00 2023-07-06 17:00:00 Adjunct Lecturer Visit Mireya, Namrata Lab Main Yolie Lim [facility] 1..840.114 350.1.13.10 4.2.7.2.686 [id number] [facility] 2023-07-06 16:45:00 2023-07-06 16:45:00 Outpatient R RAPHAELYOLIE [facility] [id number] [facility] 2023-06-30 14:00:00 2023-06-30 14:22:48 Outpatient R [facility] [id number] [facility] 2023-06-30 14:00:00 2023-06-30 14:22:48 Office Visit Venkatesh Dio [facility] 1..840.114 350.1.13.10 4.2.7.2.686 [id number] [facility] 2023-04-02 15:00:00 2023-04-02 16:06:20 Outpatient R SHARIFA WEBB [facility] [id number] [facility] 2023-04-02 15:00:00 2023-04-02 16:06:20 Office Visit Sharifa Webb [facility] 1..840.114 350.1.13.10 4.2.7.2.686 [id number] [facility] 2023-03-30 08:30:00 2023-03-30 08:45:00 Adjunct Lecturer Visit Mireya, Namrata Lab Main Yolie Lim [facility] 1..840.114 350.1.13.10 4.2.7.2.686 [id number] [facility] 2023-03-30 08:30:00 2023-03-30 08:30:00 Outpatient R YOLIE LIM [facility] [id number] [facility] 2023-03-30 00:00:00 2023-03-30 00:00:00 Orders Only Doctor Unassigned, [facility] 1.20.114 350.1.13.10 4.2.7.2.686 [id number] [facility] 2023-01-11 00:00:00 2023-01-11 00:00:00 Refill [facility] 1.2.114 350.1.13.10 4.2.7.2.686 [id number] [facility] 2022-12-22 14:39:00 2022-12-22 16:55:00 Emergency X AMANDEEP HANNON [facility] E[facility] [id number] [facility] 2022-12-22 14:39:00 2022-12-22 16:55:00 Emergency Amandeep Hannon [facility] 1..114 350.1.13.10 4.2.7.2.686 [id number] [facility] 2022-12-19 10:36:00 2022-12-19 14:05:00 Emergency LUZ MARIANO [facility] ERT [id number] [facility] 2022-12-19 10:36:00 2022-12-19 14:05:00 Emergency Luz Ricardo [facility] 1..114 350.1.13.10 4.2.7.2.686 [id number] [facility] 2022-12-16 00:00:00 2022-12-16 00:00:00 Refill Christine Santoyo [facility] 1.2.114 350.1.13.10 4.2.7.2.686 [id number] [facility] 2022-09-30 08:57:03 2022-09-30 08:57:03 Outpatient [facility] [id number] Daniel Chacko 2022-09-24 13:36:31 2022-09-24 23:59:00 Outpatient R SHARIFA WEBB [facility] [id number] [facility] 2022-09-24 13:36:31 2022-09-24 23:59:00 Hospital Encounter Sharifa Webb [facility] 1..840.114 350.1.13.10 4.2.7.2.686 [id number] [facility] 2022-08-12 08:45:00 2022-08-12 09:00:00 Adjunct Lecturer Visit 2, Adc Lab Christine Santoyo [facility] 1.2.840.114 350.1.13.10 4.2.7.2.686 [id number] [facility] 2022-08-12 08:45:00 2022-08-12 08:45:00 Outpatient R MUKESH SANTOYOBETH [facility] [id number] [facility] 2022-08-11 14:20:00 2022-08-11 15:20:08 Outpatient R MUKESH SANTOYOBETH [facility] [id number] [facility] 2022-08-11 14:20:00 2022-08-11 15:20:08 Office Visit Christine Santoyo [facility] 1.2.840.114 350.1.13.10 4.2.7.2.686 [id number] [facility] 2022-07-01 14:30:00 2022-07-01 16:36:36 Outpatient R GRISELDA WOLF OGECHUKWU [facility] [id number] [facility] 2022-07-01 14:30:00 2022-07-01 16:36:36 [facility] 1.2.840.114 350.1.13.10 4.2.7.2.686 [id number] [facility] 2022-06-27 15:00:00 2022-06-27 15:21:19 Outpatient CHRISTINE ANDREWS [facility] [id number] [facility] 2022-06-27 15:00:00 2022-06-27 15:20:00 Nurse Visit Nurse, [facility] Christine Cote [facility] 1.2.840.114 350.1.13.10 4.2.7.2.686 [id number] [facility] 2022-06-11 00:00:00 2022-06-11 00:00:00 Telephone Christine Santoyo [facility] 1.2.840.114 350.1.13.10 4.2.7.2.686 [id number] [facility] 2022-04-19 11:00:00 2022-04-19 11:34:00 Emergency X JAQUELINE NG [facility] ERT [id number] [facility] 2022-04-19 11:00:00 2022-04-19 11:34:00 Emergency Jaqueline Ng [facility] 1.2.840.114 350.1.13.10 4.2.7.2.686 [id number] [facility] 2022-04-10 15:40:00 2022-04-10 16:31:49 Outpatient CHRISTINE ANDREWS [facility] [id number] [facility] 2022-04-10 15:40:00 2022-04-10 16:31:49 Office Visit Christine Santoyo [facility] 1.2.840.114 350.1.13.10 4.2.7.2.686 [id number] [facility] 2022-03-28 10:00:00 2022-03-28 10:47:04 Office Visit Sharifa Webb [facility] 1.2840.114 350.1.13.10 4.2.7.2.686 [id number] [facility] 2022-03-28 10:00:00 2022-03-28 10:47:04 Outpatient R KATHY [facility] [id number] [facility] 2022-03-28 10:00:00 2022-03-28 10:00:00 [facility] [id number] [facility] 2022-03-05 00:00:00 2022-03-05 00:00:00 Telephone Christine Santoyo [facility] 1.2840.114 350.1.13.10 4.2.7.2.686 [id number] [facility] 2022-03-04 00:00:00 2022-03-04 00:00:00 Telephone Christine Santoyo [facility] 1.2.840.114 350.1.13.10 4.2.7.2.686 [id number] [facility] 2022-02-28 00:00:00 2022-02-28 00:00:00 Orders Only Doctor Unassigned, [facility] 1.2.840.114 350.1.13.10 4.2.7.2.686 [id number] [facility] 2022-02-27 16:00:00 2022-02-27 16:46:55 Office Visit Christine Santoyo [facility] 1.2.840.114 350.1.13.10 4.2.7.2.686 [id number] [facility] 2022-02-27 16:00:00 2022-02-27 16:46:55 Outpatient R CHRISTINE SANTOYO [facility] [id number] [facility] 2022-02-27 16:00:00 2022-02-27 16:00:00 Outpatient R CHRISTINE SANTOYO [facility] [id number] [facility] 2022-02-04 16:40:00 2022-02-04 18:01:17 Outpatient R CHRISTINE SANTOYO [facility] [id number] [facility] 2022-02-04 16:40:00 2022-02-04 18:01:17 Office Visit Christine Santoyo [facility] 1.2.840.114 350.1.13.10 4.2.7.2.686 [id number] [facility] 2022-02-04 16:40:00 2022-02-04 18:01:17 Outpatient R NASRIN SANTOYOZABETH [facility] [id number] [facility] 2022-02-04 16:20:00 2022-02-04 16:20:00 Outpatient R NASRIN SANTOYOZABETH [facility] [id number] [facility] 2022-01-31 09:15:00 2022-01-31 09:15:00 Outpatient R [facility] [id number] [facility] 2022-01-31 09:15:00 2022-01-31 09:15:00 Outpatient R [facility] [id number] [facility] 2022-01-31 09:15:00 2022-01-31 09:15:00 Outpatient R [facility] [id number] [facility] 2022-01-29 09:00:00 2022-01-29 09:15:00 Adjunct Lecturer Visit 2, Adc Lab Christine Santoyo [facility] 1.2.840.114 350.1.13.10 4.2.7.2.686 [id number] [facility] 2022-01-29 09:00:00 2022-01-29 09:00:00 [id number] 2022-01-29 09:00:00 2022-01-29 09:00:00 Outpatient R NASRIN SANTOYOZABETH [facility] [id number] [facility] 2022-01-29 09:00:00 2022-01-29 09:00:00 Outpatient R NASRIN SANTOYOZABETH [facility] [id number] [facility] 2022-01-28 00:00:00 2022-01-28 00:00:00 Telephone Santoyo Christine A [facility] 1.2.840.114 350.1.13.10 4.2.7.2.686 [id number] [facility] 2022-01-27 10:00:00 2022-01-27 11:03:12 Outpatient R CHRISTINE SANTOYO [facility] [id number] [facility] 2022-01-27 10:00:00 2022-01-27 11:03:12 Office Visit SantoyoNasrinChristine A [facility] 1.2.840.114 350.1.13.10 4.2.7.2.686 [id number] [facility] 2022-01-27 10:00:00 2022-01-27 11:03:12 Outpatient CHRISTINE ANDREWS [facility] [id number] [facility] 2022-01-27 10:00:00 2022-01-27 10:00:00 Outpatient R MUKESH SANTOYOBETH [facility] [id number] [facility] 2022-01-27 00:00:00 2022-01-27 00:00:00 Telephone Natanael Christine Ian [facility] 1.2.840.114 350.1.13.10 4.2.7.2.686 [id number] [facility] 2022-01-27 00:00:00 2022-01-27 00:00:00 Orders Only Doctor Unassigned, [facility] 1.2.840.114 350.1.13.10 4.2.7.2.686 [id number] [facility] 2022-01-03 00:00:00 2022-01-03 00:00:00 Refill SantoyoNasrinChristine A [facility] 1.2.840.114 350.1.13.10 4.2.7.2.686 [id number] [facility] 2022-01-01 00:00:00 2022-01-01 00:00:00 Refill Christine Santoyo Ian [facility] 1.2.840.114 350.1.13.10 4.2.7.2.686 [id number] [facility] 2021-12-01 00:00:00 2021-12-01 00:00:00 Refill Natanael Christine Ian [facility] 1.2.840.114 350.1.13.10 4.2.7.2.686 [id number] [facility] 2021-10-27 12:36:00 2021-10-27 13:51:00 Emergency X JAQUELINE NG [facility] [id number] [facility] 2021-10-27 12:36:00 2021-10-27 13:51:00 Emergency Jaqueline Ng [facility] 1.2840.114 350.1.13.10 4.2.7.2.686 [id number] [facility] 2021-10-27 00:00:00 2021-10-27 00:00:00 Orders Only Doctor Unassigned, [facility] 1.2840.114 350.1.13.10 4.2.7.2.686 [id number] [facility] 2021-10-02 00:00:00 2021-10-02 00:00:00 Refill Christine Santoyo [facility] 1.2840.114 350.1.13.10 4.2.7.2.686 [id number] [facility] 2021-09-23 13:08:12 2021-09-23 23:59:00 Outpatient R CHRISTINE SANTOYO [facility] [id number] [facility] 2021-09-23 13:00:00 2021-09-23 23:59:00 Hospital Encounter Christine Santoyo [facility] 1.2840.114 350.1.13.10 4.2.7.2.686 [id number] [facility] 2021-09-23 00:00:00 2021-09-23 00:00:00 Orders Only Doctor Unassigned, [facility] 1.2840.114 350.1.13.10 4.2.7.2.686 [id number] [facility] 2021-09-04 00:00:00 2021-09-04 00:00:00 Telephone Natanael Christine A [facility] 1..840.114 350.1.13.10 4.2.7.2.686 [id number] [facility] 2021-08-29 14:20:00 2021-08-29 16:38:42 Outpatient R COLETTE DYSON [facility] [id number] [facility] 2021-08-29 14:19:23 2021-08-29 14:59:23 Ancillary Visit Kareen Olivera Craig L [facility] 1..840.114 350.1.13.10 4.2.7.2.686 [id number] [facility] 2021-08-29 14:20:00 2021-08-29 14:20:00 Outpatient R COLETTE DYSON [facility] [id number] [facility] 2021-08-27 00:00:00 2021-08-27 00:00:00 Orders Only Doctor Unassigned, [facility] 1..840.114 350.1.13.10 4.2.7.2.686 [id number] [facility] 2021-08-19 13:40:00 2021-08-19 14:28:02 Outpatient R COLETTE DYSON [facility] [id number] [facility] 2021-08-19 13:42:06 2021-08-19 14:22:06 Ancillary Visit eDneen Hanley Craig L [facility] 1..840.114 350.1.13.10 4.2.7.2.686 [id number] [facility] 2021-08-16 15:12:31 2021-08-16 15:52:31 Ancillary Visit Deneen Hanley Craig L [facility] 1.2.840.114 350.1.13.10 4.2.7.2.686 [id number] [facility] 2021-08-09 13:00:00 2021-08-09 14:15:36 Outpatient COLETTE ORTIZ [facility] [id number] [facility] 2021-08-09 12:59:54 2021-08-09 14:15:36 Ancillary Visit Deneen Hanley Craig L [facility] 1..840.114 350.1.13.10 4.2.7.2.686 [id number] [facility] 2021-08-09 13:00:00 2021-08-09 13:00:00 Outpatient R COLETTE DYSON [facility] [id number] [facility] 2021-07-31 00:00:00 2021-07-31 00:00:00 Outpatient R CHRISTINE SANTOYO [facility] [id number] [facility] 2021-07-29 10:20:00 2021-07-29 11:28:27 Outpatient R CHRISTINE SANTOYO [facility] [id number] [facility] 2021-07-29 10:20:00 2021-07-29 11:28:27 Outpatient R CHRISTINE SANTOYO [facility] [id number] [facility] 2021-07-29 09:58:44 2021-07-29 11:28:27 Office Visit Christine Santoyo [facility] 1.2.840.114 350.1.13.10 4.2.7.2.686 [id number] [facility] 2021-07-29 09:57:56 2021-07-29 11:27:35 Office Visit Christine Santoyo [facility] 1.2.840.114 350.1.13.10 4.2.7.2.686 [id number] [facility] 2021-07-29 11:00:00 2021-07-29 11:00:00 Outpatient AL BLAKE [facility] [id number] [facility] 2021-07-29 11:00:00 2021-07-29 10:05:34 Outpatient AL BLAKE [facility] [id number] [facility] 2021-07-29 10:05:14 2021-07-29 10:05:34 Imm/Inj Visit Nurse, Namrata Gomes Immunizatio Al Palencia [facility] 1.2.840.114 350.1.13.10 4.2.7.2.686 [id number] [facility] 2021-07-11 07:08:00 2021-07-11 09:25:00 Hospital Encounter Mary Yolie [facility] 1.2.840.114 350.1.13.10 4.2.7.2.686 [id number] [facility] 2021-07-11 08:37:00 2021-07-11 09:14:00 Surgery Mary Yolie Hensley [facility] 1.2.840.114 350.1.13.10 4.2.7.2.686 [id number] [facility] 2021-07-09 15:15:00 2021-07-09 15:15:00 Outpatient R YOLIE DELGADO [facility] [id number] [facility] 2021-07-09 13:36:10 2021-07-09 13:51:10 Laboratory Only Only, Adc Test Mary Yolie Hensley [facility] 1.2.840.114 350.1.13.10 4.2.7.2.686 [id number] [facility] 2021-07-08 15:15:00 2021-07-08 15:15:00 Outpatient YOLIE GRAHAM [facility] [id number] [facility] 2021-07-08 00:00:00 2021-07-08 00:00:00 Orders Only Doctor Unassigned, [facility] 1.2.840.114 350.1.13.10 4.2.7.2.686 [id number] [facility] 2021-06-26 00:00:00 2021-06-26 00:00:00 Refill Christine Santoyo [facility] 1.2840.114 350.1.13.10 4.2.7.2.686 [id number] [facility] 2021-06-21 00:00:00 2021-06-21 00:00:00 Case Management Sarahi Kim 1.2840.114 350.1.13.10 4.2.7.2.686 [id number] [facility] 2021-06-17 00:00:00 2021-06-17 00:00:00 Case Management Christine Santoyo [facility] 1.2840.114 350.1.13.10 4.2.7.2.686 [id number] [facility] 2021-06-04 09:58:44 2021-06-04 10:13:44 Adjunct Lecturer Visit 2, Adc Lab Christine Santoyo [facility] 1.2840.114 350.1.13.10 4.2.7.2.686 [id number] [facility] 2021-06-04 10:00:00 2021-06-04 10:00:00 Outpatient R CHRISTINE SANTOYO [facility] [id number] [facility] 2021-05-09 09:40:00 2021-05-09 10:15:00 Surgery Yolie Delgado [facility] 1.2.840.114 350.1.13.10 4.2.7.2.686 [id number] [facility] 2021-05-09 07:37:00 2021-05-09 10:05:00 Hospital Encounter Yolie Delgado [facility] 1.2.840.114 350.1.13.10 4.2.7.2.686 [id number] [facility] 2021-05-09 07:37:00 2021-05-09 10:05:00 Outpatient YOLIE GRAHAM [facility] [id number] [facility] 2021-05-08 09:45:00 2021-05-08 09:45:00 Outpatient Alex DELGADO [facility] [id number] [facility] 2021-05-07 13:57:35 2021-05-07 14:12:35 Laboratory Only Only, [facility] 1.2.840.114 350.1.13.10 4.2.7.2.686 [id number] [facility] 2021-05-07 14:00:00 2021-05-07 14:00:00 Outpatient R [facility] [id number] [facility] 2021-05-06 00:00:00 2021-05-06 00:00:00 Telephone Christine Santoyo [facility] 1..840.114 350.1.13.10 4.2.7.2.686 [id number] [facility] 2021-05-02 16:15:00 2021-05-02 16:15:00 Outpatient Alex DELGADO [facility] [id number] [facility] 2021-05-02 15:57:15 2021-05-02 16:12:15 Adjunct Lecturer Visit Mireya, Namrata Lab Main Yolie Delgado [facility] 1.2.84.114 350.1.13.10 4.2.7.2.686 [id number] [facility] 2021-05-02 13:00:00 2021-05-02 13:47:35 Outpatient R COLETTE DYSON [facility] [id number] [facility] 2021-05-02 13:02:45 2021-05-02 13:42:45 Ancillary Visit Oliva Tavares Craig L [facility] 1..84.114 350.1.13.10 4.2.7.2.686 [id number] [facility] 2021-05-02 00:00:00 2021-05-02 00:00:00 Orders Only Doctor Unassigned, [facility] 1.84.114 350.1.13.10 4.2.7.2.686 [id number] [facility] 2021-04-30 13:02:33 2021-04-30 14:13:42 Ancillary Visit Oliva Tavares Craig L [facility] 1..84.114 350.1.13.10 4.2.7.2.686 [id number] [facility] 2021-04-30 13:00:00 2021-04-30 13:00:00 Outpatient R [facility] [id number] [facility] 2021-04-25 13:04:53 2021-04-25 13:36:02 Ancillary Visit Oliva Tavares Craig L [facility] 1.84.114 350.1.13.10 4.2.7.2.686 [id number] [facility] 2021-04-25 13:00:00 2021-04-25 13:36:02 Outpatient R COLETTE DYSON [facility] [id number] [facility] 2021-04-23 14:11:33 2021-04-23 14:51:33 Ancillary Visit Oliva Tavares Craig L [facility] 1.2.840.114 350.1.13.10 4.2.7.2.686 [id number] [facility] 2021-04-22 00:00:00 2021-04-22 00:00:00 Orders Only Doctor Unassigned, [facility] 1.2.840.114 350.1.13.10 4.2.7.2.686 [id number] [facility] 2021-04-18 14:32:56 2021-04-18 16:02:03 Ancillary Visit Margot Tran Craig L [facility] 1.2.840.114 350.1.13.10 4.2.7.2.686 [id number] 179 [id number] [facility] 2021-04-12 00:00:00 2021-04-12 00:00:00 Telephone Christine Santoyo [facility] 1.2.840.114 350.1.13.10 4.2.7.2.686 [id number] [facility] 2021-04-11 14:11:28 2021-04-11 15:15:16 Ancillary Visit Oliva Tavares Brittany [facility] 1.2.840.114 350.1.13.10 4.2.7.2.686 [id number] 179 [id number] [facility] 2021-04-09 14:10:05 2021-04-09 14:50:32 Ancillary Visit Oliva Tavares Brittany [facility] 1.2.840.114 350.1.13.10 4.2.7.2.686 [id number] 179 [id number] [facility] 2021-04-04 13:53:19 2021-04-04 14:37:12 Ancillary Visit Mariana Berger RaúlFlower [facility] 1.2.840.114 350.1.13.10 4.2.7.2.686 [id number] 179 [id number] [facility] 2021-04-04 14:00:00 2021-04-04 14:00:00 Outpatient R [facility] [id number] [facility] 2021-04-03 00:00:00 2021-04-03 00:00:00 Case Management AdjuanySharifa [facility] 1.2.840.114 350.1.13.10 4.2.7.2.686 [id number] [facility] 2021-03-26 14:41:05 2021-03-26 16:01:31 Office Visit Sharifa Webb [facility] 1.2.840.114 350.1.13.10 4.2.7.2.686 [id number] 134 [id number] [facility] 2021-03-26 15:00:00 2021-03-26 15:00:00 Outpatient R ADSHARIFA TAYLOR [facility] [id number] [facility] 2021-03-25 14:03:41 2021-03-25 15:10:12 Ancillary Visit Mariana Berger Elizabeth A [facility] 1.2.840.114 350.1.13.10 4.2.7.2.686 [id number] [facility] 2021-03-25 14:20:00 2021-03-25 14:20:00 Outpatient R CHRISTINE SANTOYO [facility] [id number] [facility] 2021-03-25 00:00:00 2021-03-25 00:00:00 Orders Only Doctor Unassigned, [facility] 1.20.114 350.1.13.10 4.2.7.2.686 [id number] [facility] 2021-03-14 16:30:00 2021-03-14 16:30:00 Outpatient R BERNICE OLSENTANY [facility] [id number] [facility] 2021-03-14 12:46:42 2021-03-14 13:16:42 [facility].84.114 350.1.13.10 4.2.7.2.686 [id number] [facility] 2021-03-14 00:00:00 2021-03-14 00:00:00 Telephone Christine Santoyo [facility] 1.2840.114 350.1.13.10 4.2.7.2.686 [id number] [facility] 2021-03-12 00:00:00 2021-03-12 00:00:00 Patient Secure Msg Doctor Unassigned, [place] [facility] 1.2.114 350.1.13.10 4.2.7.2.686 [id number] [facility] 2021-03-11 10:40:04 2021-03-11 11:50:28 Office Visit Christine [facility]oyo [facility] [facility] 1.2840.114 350.1.13.10 4.2.7.2.686 [id number] [facility] 2021-03-11 10:40:00 2021-03-11 10:40:00 Outpatient R CHRISTINE SANTOYO [facility] [id number] [facility] 2021-01-07 00:00:00 2021-01-07 00:00:00 Telephone Christine Santoyo Ian [facility] Building 1.2.840.114 350.1.13.10 4.2.7.2.686 [id number] [facility] 2020-12-10 10:00:00 2020-12-10 10:00:00 Outpatient R [facility] [id number] [facility] 2020-12-10 09:44:25 2020-12-10 09:59:25 Adjunct Lecturer Visit 2, [facility] 1.2.840.114 350.1.13.10 4.2.7.2.686 [id number] [facility] 2020-12-04 00:00:00 2020-12-04 00:00:00 Telephone SantoyoAlyshadara Soas [facility] nal Building 1.2.840.114 350.1.13.10 4.2.7.2.686 [id number] [facility] 2020-12-03 11:13:53 2020-12-03 11:28:53 Adjunct Lecturer Visit 2, [facility] 1.2.840.114 350.1.13.10 4.2.7.2.686 [id number] [facility] 2020-12-03 10:16:26 2020-12-03 11:12:07 [facility] 1.2.840.114 350.1.13.10 4.2.7.2.686 [id number] [facility] 2020-12-03 10:30:00 2020-12-03 10:30:00 Outpatient FLOWER PRUETT [facility] [id number] [facility] 2020-11-27 00:00:00 2020-11-27 00:00:00 Pre Visit Outreach Christine Santoyo [facility] 1..840.114 350.1.13.10 4.2.7.2.686 [id number] [facility] 2020-11-05 10:10:00 2020-11-05 10:10:00 Outpatient CHARLOTTE THOMPSON [facility] [id number] [facility] 2020-10-08 10:20:00 2020-10-08 10:20:00 Outpatient CHARLOTTE THOMPSON [facility] [id number] [facility] 2020-08-15 08:39:37 2020-08-15 09:28:52 Office Visit Mel Palma [facility] 1..840.114 350.1.13.10 4.2.7.2.686 [id number] [facility] 2020-08-15 09:00:00 2020-08-15 09:00:00 Outpatient MEL FLOWERS [facility] [id number] [facility] 2020-08-02 13:42:02 2020-08-02 14:57:39 Office Visit Christine Santoyo [facility] 1..840.114 350.1.13.10 4.2.7.2.686 [id number] [facility] 2020-08-02 14:00:00 2020-08-02 14:00:00 Outpatient CHRISTINE ANDREWS [facility] [id number] [facility] 2020-07-24 14:20:00 2020-07-24 23:59:00 Outpatient R CHRISTINE SANTOYO [facility] [id number] [facility] 2020-07-24 14:14:23 2020-07-24 23:59:00 Hospital Encounter Christine Santoyo [facility] 1.2.840.114 350.1.13.10 4.2.7.2.686 [id number] [facility] 2020-07-24 14:20:00 2020-07-24 14:20:00 Outpatient R CHRISTINE SANTOYO [facility] [id number] [facility] 2020-07-10 00:00:00 2020-07-10 00:00:00 Telephone Santoyo Christine A [facility] 1.2.840.114 350.1.13.10 4.2.7.2.686 [id number] [facility] 2020-06-29 09:25:49 2020-06-29 09:40:49 Nurse Visit Nurse, [facility] Christine Santoyo [facility] 1.2.840.114 350.1.13.10 4.2.7.2.686 [id number] [facility] 2020-06-29 09:40:00 2020-06-29 09:40:00 Outpatient R CHRISTINE SANTOYO [facility] [id number] [facility] 2020-06-29 09:30:00 2020-06-29 09:30:00 Outpatient R [facility] [id number] [facility] 2020-06-18 00:00:00 2020-06-18 00:00:00 Case Management Nasrin Santoyozajuliet Sosa [facility] 1.2.840.114 350.1.13.10 4.2.7.2.686 [id number] [facility] 2020-06-11 12:24:09 2020-06-11 12:39:09 Adjunct Lecturer Visit Mireya, [facility] 1.2.840.114 350.1.13.10 4.2.7.2.686 [id number] [facility] 2020-06-11 12:15:00 2020-06-11 12:15:00 Outpatient R CHRISTINE SANTOYO [facility] [id number] [facility] 2020-06-11 00:00:00 2020-06-11 00:00:00 Orders Only Doctor Unassigned, [facility] 1.2.840.114 350.1.13.10 4.2.7.2.686 [id number] [facility] 2020-05-22 13:36:50 2020-06-08 14:28:25 Ancillary Visit Oliva Tavares Craig L [facility] Building 1.2.840.114 350.1.13.10 4.2.7.2.686 [id number] [facility] 2020-06-08 10:34:23 2020-06-08 11:49:06 Office Visit Christine Santoyo [facility] 1.2.840.114 350.1.13.10 4.2.7.2.686 [id number] [facility] 2020-06-08 10:40:00 2020-06-08 10:40:00 Outpatient R CHRISTINE SANTOYO [facility] [id number] [facility] 2020-06-08 00:00:00 2020-06-08 00:00:00 Telephone Christine Santoyo [facility] 1.2.840.114 350.1.13.10 4.2.7.2.686 [id number] [facility] 2020-06-08 00:00:00 2020-06-08 00:00:00 [facility]phone [facility] 1.2.840.114 350.1.13.10 4.2.7.2.686 [id number] [facility] 2020-05-17 13:39:03 2020-05-17 14:19:03 Ancillary Visit Oliva Tavares Craig L [facility] nal Building 1.2.840.114 350.1.13.10 4.2.7.2.686 [id number] [facility] 2020-05-15 13:34:21 2020-05-15 14:14:21 Ancillary Visit Oliva [facility] 1.2.840.114 350.1.13.10 4.2.7.2.686 [id number] [facility] 2020-05-03 13:39:29 2020-05-03 16:02:53 Ancillary Visit Margot Tran Craig L [facility] nal Building 1.2.840.114 350.1.13.10 4.2.7.2.686 [id number] [facility] 2020-05-01 13:24:03 2020-05-01 14:04:03 Ancillary Visit Oliva Tavares Craig L [facility] 1.2.840.114 350.1.13.10 4.2.7.2.686 [id number] [facility] 2020-05-01 13:40:00 2020-05-01 13:40:00 Outpatient R [facility] [id number] [facility] 2020-04-26 13:36:13 2020-04-26 14:16:13 Ancillary Visit Oliva Tavares Colette Fernandez [facility] Building 1.284.114 350.1.13.10 4.2.7.2.686 [id number] [facility] 2020-04-24 13:40:37 2020-04-24 17:12:22 Ancillary Visit Margot Tran Craig L [facility] 1.2840.114 350.1.13.10 4.2.7.2.686 [id number] [facility] 2020-04-16 10:52:28 2020-04-16 11:52:28 Ancillary Visit Tran Margot Dyson Colette lAfred [facility] 1.2.840.114 350.1.13.10 4.2.7.2.686 [id number] [facility] 2020-04-16 11:00:00 2020-04-16 11:00:00 Outpatient R COLETTE DYSON [facility] [id number] [facility] 2020-04-16 00:00:00 2020-04-16 00:00:00 Telephone Christine Santoyo [facility] 1.2.840.114 350.1.13.10 4.2.7.2.686 [id number] [facility] 2020-04-09 10:51:27 2020-04-09 23:59:00 Outpatient R CHRISTINE SANTOYO [facility] [id number] [facility] 2020-04-09 10:51:00 2020-04-09 23:59:00 Hospital Encounter Christine Santoyo [facility] 1.2.840.114 350.1.13.10 4.2.7.2.686 [id number] [facility] 2020-04-09 00:00:00 2020-04-09 00:00:00 Outpatient R CHRISTINE SANTOYO [facility] [id number] [facility] 2020-04-09 00:00:00 2020-04-09 00:00:00 Orders Only Doctor Unassigned, [facility] 1.2.840.114 350.1.13.10 4.2.7.2.686 [id number] [facility] 2020-04-09 00:00:00 2020-04-09 00:00:00 Refill Christine Santoyo [facility] Building 1.2840.114 350.1.13.10 4.2.7.2.686 [id number] [facility] 2020-04-02 10:34:44 2020-04-02 12:03:00 Office Visit [facility] 1.2840.114 350.1.13.10 4.2.7.2.686 [id number] [facility] 2020-04-02 10:40:00 2020-04-02 10:40:00 Outpatient R CHRISTINE SANTOYO [facility] [id number] [facility] 2020-03-19 00:00:00 2020-03-19 00:00:00 Telephone [facility] 1.2840.114 350.1.13.10 4.2.7.2.686 [id number] [facility] 2020-03-13 00:00:00 2020-03-13 00:00:00 Telephone Christine Santoyo [facility] 1.2840.114 350.1.13.10 4.2.7.2.686 [id number] [facility] 2020-03-11 10:25:36 2020-03-11 14:37:00 Emergency X ANU ROCHE [facility] E[facility] [id number] [facility] 2020-03-11 10:25:36 2020-03-11 14:37:00 Emergency Anu Roche G [facility] 1.2.840.114 350.1.13.10 4.2.7.2.686 [id number] [facility] 2020-03-11 00:00:00 2020-03-11 00:00:00 Orders Only Doctor Unassigned, [facility] 1.2.840.114 350.1.13.10 4.2.7.2.686 [id number] [facility] 2020-03-01 00:00:00 2020-03-01 00:00:00 Telephone Christine Santoyo [facility] 1.2.840.114 350.1.13.10 4.2.7.2.686 [id number] [facility] 2020-02-28 09:38:24 2020-02-28 11:47:00 Office Visit Christine Santoyo [facility] 1.2.840.114 350.1.13.10 4.2.7.2.686 [id number] [facility] 2020-02-28 09:40:00 2020-02-28 09:40:00 Outpatient R CHRISTINE SANTOYO [facility] [id number] [facility] 2020-01-30 13:40:00 2020-01-30 13:40:00 Outpatient R CHRISTINE SANTOYO [facility] [id number] [facility] 2020-01-30 08:09:09 2020-01-30 08:29:09 Telemedici ne Visit Christine Santoyo [facility] 1.2.840.114 350.1.13.10 4.2.7.2.686 [id number] [facility] 2019-11-30 10:04:27 2019-11-30 10:59:18 Office Visit Christine Santoyo [facility] 1.2.840.114 350.1.13.10 4.2.7.2.686 [id number] [facility] 2019-11-30 10:00:00 2019-11-30 10:00:00 Outpatient R CHRISTINE SANTOYO [facility] [id number] [facility] 2019-11-30 00:00:00 2019-11-30 00:00:00 Orders Only Doctor Unassigned, [facility] 1.2840.114 350.1.13.10 4.2.7.2.686 [id number] [facility] 2019-11-12 07:53:43 2019-11-12 09:01:00 Emergency Taran Pittman [facility] 1.2.840.114 350.1.13.10 4.2.7.2.686 [id number] [facility] 2019-11-12 00:00:00 2019-11-12 00:00:00 Orders Only Doctor Unassigned, [facility] 1.2.840.114 350.1.13.10 4.2.7.2.686 [id number] [facility] 2019-05-05 00:00:00 2019-05-05 00:00:00 Telephone Kevin York 1.2.840.114 350.1.13.10 4.2.7.2.686 [id number] [facility] 2019-04-29 10:49:18 2019-04-29 12:38:27 Office Visit Nash Morales [facility] 1.2.840.114 350.1.13.10 4.2.7.2.686 [id number] [facility] 2019-04-28 00:00:00 2019-04-28 00:00:00 Telephone Christine Santoyo [facility] 1.2.840.114 350.1.13.10 4.2.7.2.686 [id number] [facility] Results Test Description Test Time Test Comments Results Result Co mments Source [facility] WITH [id number] 17:20:31* Test Item Value Reference Range Interpretation Comme nts WBC (test code = 6690-2) 8.29 See_Comment [Automated messa ge] The system which generated this result transmitted reference range: 4.30 - 11.10 10*3/?L. The reference range was not used to interpret this result as normal/abnormal. RBC (test code = 789-8) 4.47 See_Comment [Automated messa ge] The system which generated this result transmitted reference range: 3.93 - 5.25 10*6/?L. The reference range was not used to interpret this result as normal/abnormal. HGB (test code = 718-7) 13.9 g/dL 11.6-15.0 HCT (test code = 4544-3) 42.9 % 35.7-45.2 MCV (test code = 787-2) 96.0 fL 80.6-95.5 H MCH (test code = 785-6) 31.1 pg 25.9-32.8 MCHC (test code = 786-4) 32.4 g/dL 31.6-35.1 RDW-SD (test code = 46158-8) 47.1 fL 39.0-49.9 RDW-CV (test code = 788-0) 13.2 % 12.0-15.5 PLT (test code = 777-3) 305 See_Comment [Automated messa ge] The system which generated this result transmitted reference range: 166 - 358 10*3/?L. The reference range was not used to interpret this result as normal/abnormal. MPV (test code = 70681-4) 10.4 fL 9.5-12.9 NRBC/100 WBC (test code = 7779666135) 0.0 See_Comment [Automated me ssage] The system which generated this result transmitted reference range: 0.0 - 10.0 /100 WBCs. The reference range was not used to interpret this result as normal/abnormal. NRBC x10^3 (test code = 1713011775) See_Comment [Automated messa ge] The system which generated this result transmitted reference range: 10*3/?L. The reference range was not used to interpret this result as normal/abnormal. GRAN MAT (NEUT) % (test code = 770-8) 55.1 % IMM GRAN % (test code = 4661584951) 0.20 % LYMPH % (test code = 736-9) 31.6 % MONO % (test code = 5905-5) 10.9 % EOS % (test code = 713-8) 1.7 % BASO % (test code = 706-2) 0.5 % GRAN MAT x10^3(ANC) (test code = 3641078935) 4.57 10*3/uL 1.88-7.09 IMM GRAN x10^3 (test code = 8314530235) 0.00-0.06 LYMPH x10^3 (test code = 731-0) 2.62 10*3/uL 1.32-3.29 MONO x10^3 (test code = 742-7) 0.90 10*3/uL 0.33-0.92 EOS x10^3 (test code = 711-2) 0.14 10*3/uL 0.03-0.39 BASO x10^3 (test code = 704-7) 0.04 10*3/uL 0.01-0.07 Lab Interpretation (test code = 66087-7) Abnormal [facility] URINALYSIS W SPECIFIC [id number] 19:54:00* Test Item Value Reference Range Interpretation Comme nts POCT U SP GRAV (test code = 3255) 1.020 mg/dl 1.005-1.025 POCT PH U (test code = 3254) 5 mg/dl 5-8 POCT U LEUK EST (test code = 3263) negative Negative - Negative POCT U NIT (test code = 3262) negative Negative - Negati ve POCT U PROT (test code = 3259) negative Negative - Negative POCT U GLU (test code = 3256) negative Negative - Negati ve POCT U KETONE (test code = 3258) negative Negative - Negative POCT U UROBILI (test code = 3260) 0.2 mg/dl 0.2-1 POCT U BILI (test code = 3261) negative Negative - Negative POCT U BLD (test code = 3257) negative Negative - Negati ve POCT U COLOR (test code = 3266) straw POCT U APPEAR (test code = 3267) [facility]CIFIC [id number] 19:54:00* Test Item Value Reference Range Interpretation Comme nts POCT U SP GRAV (test code = 3255) 1.020 mg/dl 1.005-1.025 POCT PH U (test code = 3254) 5 mg/dl 5-8 POCT U LEUK EST (test code = 3263) negative Negative - Negative POCT U NIT (test code = 3262) negative Negative - Negati ve POCT U PROT (test code = 3259) negative Negative - Negative POCT U GLU (test code = 3256) negative Negative - Negati ve POCT U KETONE (test code = 3258) negative Negative - Negative POCT U UROBILI (test code = 3260) 0.2 mg/dl 0.2-1 POCT U BILI (test code = 3261) negative Negative - Negative POCT U BLD (test code = 3257) negative Negative - Negati ve POCT U COLOR (test code = 3266) straw POCT U APPEAR (test code = 3267) clear [facility]
[2023-10-19] MEDS ORDERED: ALBUTEROL INHALER 60 PUFF/8 GM IH PRN (15:46)
[2023-10-19] MEDS: LACTOBACILLUS/ACIDOPHILUS TAB PO SCH (17:00)
--- NOTE | 2023-10-19 17:07 | EKG ---
Test Date: 2023-10-15 Test Time: 14:32:54 [employer] Officer: ULYSSES MEASUREMENT RESULTS: Intervals: Rate: 75 OH: 158 QRSD: 74 QT: 404 QTc: 451 [place]: P: 22 OH: 158 QRS: 41 T: 45 INTERPRETIVE STATEMENTS: Normal sinus rhythm Cannot rule out Anterior infarct, age undetermined Abnormal ECG No previous ECG available for comparison Electronically Signed On 10-19-23 16:56:10 OUTPATIENT PHYSICAL THERAPIST by Brett Limon
[2023-10-19 17:24] VITALS: BMI 27.7
[2023-10-19] MEDS: Ringers Lactate 1,000 ML IV SCH (18:45)
[2023-10-19] MEDS: CEFAZOLIN 1 GM in NA CHLORIDE 0.9% 50 ML IVPB SCH (18:45)
[2023-10-19] MEDS: HEPARIN 5000 UNIT/ML 1 ML VIAL SQ SCH (18:46)
[2023-10-19] MEDS: GABAPENTIN 400 MG CAP PO SCH (20:32)
[2023-10-19] MEDS ORDERED: HOME MED 1 EA UNK (Gabapentin [Gabapentin] 800 MG Tablet) PO SCH (21:00)
[2023-10-19] MEDS ORDERED: lisinopriL 10 MG TAB PO SCH (21:00)
[2023-10-19] MEDS: MORPHINE 2 MG/ML SYR IV PRN (22:14)
[2023-10-20] MEDS: CEFAZOLIN 1 GM in NA CHLORIDE 0.9% 50 ML IVPB SCH (01:36)
[2023-10-20] MEDS: HEPARIN 5000 UNIT/ML 1 ML VIAL SQ SCH ×2 (01:37→09:28)
[2023-10-20] MEDS: Ringers Lactate 1,000 ML IV SCH ×2 (01:40→09:41)
[2023-10-20] MEDS: ACETAMINOPHEN 500 MG TAB PO PRN ×2 (01:40→07:16)
[2023-10-20 06:55] LABS: Absolute Lymphocytes (CBC) 2.8 K/uL (0.7-4.9); Hematocrit 35.7 % (36.0-45.0); Lymphocytes % 19.3 % (15.3-44.8); MCV 92.8 fL (80-100); MPV 8.8 fL (7.6-11.3); Platelets 261 thou/uL (152-406); RBC Red Blood Cell Count 3.84 M/uL (3.86-4.86)
[2023-10-20 06:59] LABS: Potassium 3.9 mEq/L (3.5-5.1)
[2023-10-20] MEDS ORDERED: [UNRECOGNIZED DRUG - MIXTURE] PO SCH (09:00)
[2023-10-20] MEDS ORDERED: NITROFURAN MACRO 100 MG CAP PO SCH (09:00)
[2023-10-20] MEDS: MORPHINE 2 MG/ML SYR IV PRN (09:26)
[2023-10-20] MEDS: LACTOBACILLUS/ACIDOPHILUS TAB PO SCH ×2 (09:27→11:51)
[2023-10-20] MEDS: GABAPENTIN 400 MG CAP PO SCH (09:27)
[2023-10-20 11:42] VITALS: BP 144/67; TEMP 98
--- NOTE | 2023-10-20 21:36 | OP ---
Date of Procedure: 10/19/2023 Surgeon: Karolyn Geller MD Branch Controller: Caitlin Horton. Preoperative Diagnoses: Stage III anterior wall prolapse, incomplete uterovaginal prolapse, rectocel e, and stress urinary incontinence. Postoperative Diagnoses: Stage III anterior wall prolapse, incomplete uterovaginal prolapse, rectoce le, stress urinary incontinence, and posterior enterocele. Procedures Performed: 1.Biologic graft augmented anterior repair. 2.Bilateral sacrospinous ligament fixation, cervical colpopexy. 3.Posterior repair that is a site-specific defect repair. 4.Posterior enterocele repair and perineorrhaphy. 5.Transobturator mid urethral sling (Solyx single incision sling) and cystoscopy. Estimated Blood Loss: 50. Specimens: No specimens. Complications: None. Drains: Hannon catheter and vaginal packing. Anesthesia: General endotracheal. Implants: Solyx and culdoplasty 8 x 6 biologic graft. Disposition: Transferred to the recovery room in stable condition. Findings: POP-Q 0, +2, 0, 6, moderate, 8, 0, 0, and -3. Posterior enterocele was noted and distal l ateral wall defect and posterior wall defects were noted. Indications: Patient is a 68-year-old female presented with prolapse symptoms. She was evaluated an d urodynamic study, cystoscopy, and ultrasound were all performed. No evidence of any problems with her uterus or ovaries. Bladder showed no voiding dysfunction. She had emptied her bladder well. e does have overactive bladder symptoms as well and occult stress urinary incontinence. All of these were reviewed with the patient. Cystoscopy did not show any tumors. So, proceeded with doing preop erative medical clearance and then she was brought back and reviewed all the options including pessar y and alternatives of surgery. Surgical options include uterine preservation or removal with prolaps e repair. We discussed about a laparoscopic hysterectomy, bilateral salpingo-oophorectomy with sacra l colpopexy and posterior repair and sling, or the vaginal uterine preserving anterior and posterior wall repairs, anterior wall repair with biologic graft augmentation and then stress urinary incontine nce treated with a sling. After understanding the benefits and risks and alternatives of each proced ure, patient wanted to have a procedure that was least invasive without removal of her uterus, so we proceeded with a vaginal option. Procedure In Detail: After informed consent was re-verified in the preoperative area and her steve doty was present and questions and answers were completed to their satisfaction, she was taken back to t he OR and placed in supine fashion. After general anesthesia was given, she was placed in a dorsal lithotomy position using Emeka stirrup s. Vulva, vagina, and perineum were prepped and draped in a sterile fashion including the lower abdo men with Betadine. The Hannon was placed to drain the bladder and the speculum placed to expose the c ervix. Anterior lip was grasped with Allis clamps to perform POP-Q, which is as dictated above. I c ould clearly see how the anterior wall prolapse was significant, especially in the distal anterior wa ll. So, it was important to dissect the anterior wall of the distal portion of the connective tissue from the pubocervical fascia, find the edges and be able to bridge the gap between the cervix and th e UVJ where the fascia was to be found and do a fixation apically to bilateral sacrospinous ligaments . Then, the anterior midline was marked, injected with dilute vasopressin. Incision was made with a 15 blade and the full-thickness of the vaginal wall and the underlying connective tissue were all incis ed and the bladder dissected inferiorly in the space inferior to the vaginal connective tissue. Then , the dissection carried to the UVJ and all the way to the cervix and exposing the cervix. Then, lat erally the proximal lateral aspect was dissected open from the bladder to the vaginal wall and slowly in the paravaginal spaces on both sides and after identifying the ischial spine, the sacrospinous li gament was cleared up and dissected free by sweeping medial and posterior to the ischial spine toward s the coccyx. It was a clear easy dissection on the left side for the sacrospinous and the white juarez e was also dissected and exposed on the left. On the right side, the dissection was slightly difficu lt to expose the sacrospinous ligament as the plane of dissection did not allow a very easy the defle ction of the rectum off the sacrospinous ligament. However, this was accomplished asystematically to a much better extent and then the lateral right white line was opened and cleared up. A Capio device was taken with a Prolene suture and the sutures were placed mid ligament into the sacr al spinous, firstly on the left, then after the PDS suture of the cavity was placed on the white line , slightly lateral and anterior to the ischial spine about 1.5 cm. These were held on clamps in a si milar fashion on the opposite side. I placed a suture in the mid ligament for the sacral spinous and then on the white line about 1.5 cm from the ischial spine laterally anteriorly. All these were hel d on clamps and thus the anchoring sutures to the precervical fascia at the level of the UVJ were leonid eli with three 2-0 PDS sutures and then 3 Prolene sutures in the proximal part of the cervix in the m idline and on either sides. The biologic graft was then taken and fashioned to a trapezoid 8 x 6 x 5 cm. Midline was marked. Th en, at the proximal part, the markings for the pericervical attachment were made. Then, the sacrospi nous suture locations were marked and then for the white line suture anchors, the distance of the 3 c m from the proximal part was marked on the lateral margin of the trapezoid. The graft was soaked acc ording to the package instructions and the midline sutures of PDS in the distal wall and Prolene sutu res in the proximal wall were anchored to the graft. Then, the sacrospinous sutures were anchored to the proximal lateral most aspect of the graft with a clayton stitch so I could tie it easily. The la teral white line sutures were anchored and left in place. After the left sacrospinous and white line sutures were placed and tied down and trimmed, the right sacrospinous suture was tied down and on ch ecking the attachment of the arm on the sacrospinous, I was not satisfied with the location of the an chor as this had caught up to the loose connective tissue anterior to the sacrospinous ligament, whic h was noted to be a good anchor, so I took the suture out and repeated the stitch slightly closer to the ischial spine on the sacrospinous ligament. This was a much better anchor and I believe that I w as able to place the suture through the ligament rather than the connective tissue. Once this was re positioned and reattached to the right lateral proximal arm, then this was tied down as well as the l ateral 2 PDS sutures. There was an excellent support to the lateral aspects to correct the paravagin al defect as well as the proximal distal ends and the entire anterior wall. Fascia was slightly trim med with a curved Wooten scissors and closed with the help of a running 2-0 Vicryl in a horizontal vaibhav ress fashion as well as in a running continuous fashion of the distal portion for hemostasis. The sling was then performed. The area under the urethra 1.5 cm was marked out of the midline, injec sixto with dilute vasopressin on each side. 10 cc was used. After making the incision of the fascia a nd the connective tissue with a 15 blade, dissection was carried underneath the connective tissue, cr eating a tunnel towards the ipsilateral and pubic ramus and obturator space. The tunnel was expanded by opening up the tips of the scissors without perforating the obturator membrane. Same dissection was performed on either side and a good pocket was created underneath the urethra in the mid urethral area for the mesh to lay flat. The Solyx single incision sling was loaded with the center marked with a 3-0 Monocryl suture, placed in a 45 degrees angle through the tunnel under the inferior pubic ramus to reach the obturator membra ne. The handle was laid lateral to the contralateral thigh and then at a 45-degree angle, the anchor was driven into the obturator internus muscle. Once this was done, there was a good anchor. I chec ked on the attachment and then the second side was loaded and attached in a similar fashion opposite side without unloading the anchor. Checked the tensioning, the mesh laid flat and flushed with ureth ra. I was able to still put an instrument between with the urethra and the mesh. As this was a sati sfactory anchored position, the needle was detached and pulled out. After antibiotic irrigation, the incision was closed with the help of continuous running 3-0 Monocryl suture. Hannon was removed and a 17-Djiboutian sheath, 30-degree lens, and normal saline were used to check the bladder. Both lateral a spects were checked for any perforation and there was none. No evidence of any foreign body or traum a to the bladder. Both ureteric orifices had strong jets of urine from them. The bladder was draine d and Hannon was reconnected and retracted superiorly. A rectovaginal exam was performed to identify the rectal defect. Then, after dilute vasopressin was injected 20 mL in the posterior area that was marked out as a judy, the skin incision was made wit h a 15 blade, excised the skin on the perineum as well as the posterior vaginal wall. Then, dissecti on was carried to the base of the flap and the attached the connective tissue from overlying vaginal epithelium. Carefully, all the fascia was dissected. There was a site-specific defect detaching the posterior distal septum from the perineal body as well as the left lateral margin. So, the defect w as closed with the help of a continuous running 2-0 Vicryl suture after reconstructing the perineal b karri first once the tissues were exposed. This was performed with the help of interrupted 2-0 Vicryl sutures, then 2-0 Vicryl for [id number] reconstruction and reattachment. Posterior enterocele repair: Pursestring suture with 3-0 Monocryl was placed to reduce the enterocel e and plication with 2-0 Vicryl was done from [id number] in order for this to be without tension. The vaginal epithelium was slightly trimmed. Continuous running 3-0 Monocryl was used to close the p erineal body, level 2-0 Vicryl sutures were used and the perineum reconstructed with the same in a lamb bcutaneous and subcuticular fashion. Rectovaginal exam was performed. No evidence of any trauma or foreign body in the rectum at the sacrospinous or the posterior distal repair. Vaginal packing was placed. Hannon was left in place. Instrument, needle, and sponge counts were cor rect at the end of the case. Patient tolerated the procedure well and she was recovered from anesthe cecil and taken to PACU in stable condition. Her daughter was debriefed by her condition. She will be kept overnight for a voiding trial and discharged home. KENDELL/RAGHAV Voice ID: [id number] Report ID: [id number]
== END 2023-10-20 12:18 | disposition home or self-care (01) ==
LOC: OR 07:39 → 2ND 13:50
PROVIDERS: ADMIT Obstetrics & Gynecology; ATTEND Obstetrics & Gynecology
PROC: 0USG0ZZ Reposition Vagina, Open Approach (ICD-10-PCS; 2023-10-19)
PROC: 0JUC0JZ Supplement of Pelvic Region Subcutaneous Tissue and Fascia with Synthetic Substitute, Open Approach (ICD-10-PCS; 2023-10-19)
PROC: 0JQC0ZZ Repair Pelvic Region Subcutaneous Tissue and Fascia, Open Approach (ICD-10-PCS; 2023-10-19)
PROC: 0TSD0ZZ Reposition Urethra, Open Approach (ICD-10-PCS; principal; 2023-10-19 09:30)
DX: N81.2 Incomplete uterovaginal prolapse (principal); R35.0 Frequency of micturition; N39.3 Stress incontinence (female) (male)
CPT/HCPCS: 57288; 57282; 93005; 85025 ×2; 80048 ×2; 36415 ×2; 86900; 86850; 85610; 86901; 85730; 81003; 94010; 31720; 57265; 57267; J1644 ×3; J2704; J2001; J2250; J3010; J1100; J2270 ×2; J2405; C1771; J7120 ×5; J0690 ×3; G0378; G0379